=== PATIENT | male | born 1945 | race Caucasian/White ===

== ENCOUNTER 2017-07-02 11:52 | Inpatient (IN) | payer OTHER ==
--- NOTE | 2017-07-02 13:14 | PDOC ---
History of Present Illness - General Chief Complaint: Lightheaded Stated Complaint: EAR PAIN Time Seen by Provider: 07/02/17 12:24 - History of Present Illness Initial Comments: 07/02/17 13:03 Pt is a 71 y/o [place] M w/ extensive PMH significant for COPD, DM, HTN, R renal CA s/p nephrectomy w/out mets (see below) who presented to ED with dizziness and right ear bleeding. Pt states his dizziness started yesterday and feels like the world is spinning and occurs only when he stands up abruptly. Denies dizziness when walking or with head movement. He has been feeling generally unwell for the last week or two and went to see a pulmonolgist (Dr. Josue) at [facility] who gave him steroids. Pt states he blew his nose this morning and subsequently had blood trickling from his right ear. At some point today, he put tweezers in his right ear and states it sounded like they were hitting something metal, and he feels like there may be a piece of metal in his ear. Pt is [place] and travels to [place] every year. Pt is currently afebrile, hemodynamically stable, and in NAD. 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 He is s/p R nephrectomy for CA. 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 Past History - Past Medical History Allergies/Adverse Reactions: Allergies Allergy/AdvReac Type Severity Reaction Status Date / Time hydrochlorothiazide Allergy Swelling Verified 07/02/17 12:12 [From Hyzaar] ibuprofen [From Advil] Allergy Swelling Verified 07/02/17 12:12 losartan [From Hyzaar] Allergy Swelling Verified 07/02/17 12:12 Home Medications: Ambulatory Orders Atorvastatin Calcium [Lipitor] 10 mg PO DAILY 07/02/17 Budesonide/Formeterol Fumarate [SYMBICORT 160/4.5mcg -] 1 inh PO BID 07/02/17 Clonidine HCl 0.1 mg PO BID 07/02/17 Folic Acid 1 mg PO DAILY 07/02/17 Furosemide [Lasix] 40 mg PO DAILY 07/02/17 Metoprolol Succinate [Toprol Xl] 50 mg PO DAILY 07/02/17 Metoprolol Succinate [Toprol Xl] 100 mg PO DAILY 07/02/17 Montelukast Sodium [Singulair] 10 mg PO DAILY 07/02/17 Potassium Chloride [K-Dur -] 10 meq PO BID 07/02/17 COPD: Yes Diabetes: Yes HTN: Yes - Suicide/Smoking/Psychosocial Hx Smoking History: Former smoker Have you smoked in the past 12 months: No If you are a former smoker, when did you quit?: 2 yrs Information on smoking cessation initiated: No Hx Alcohol Use: No Drug/Substance Use Hx: No Review of Systems - Review of Systems Able to Perform ROS?: Yes Is the patient limited Prydeinig proficient: Yes Constitutional: Yes: Symptoms Reported, Malaise. No: Chills, Fever, Night Sweats HEENTM: Yes: Symptoms Reported, See HPI, Tinnitus, Hearing Loss, Other (right ear bleeding). No: Eye Pain, Blurred Vision, Tearing, Nose Bleeding, Throat Swelling Respiratory: Yes: Shortness of Breath. No: Cough, Productive cough Cardiac (ROS): Yes: Symptoms Reported, Edema (pedal edema). No: Chest Pain ABD/GI: Yes: Symptoms Reported. No: Abdominal Distended, Constipated, Diarrhea , Poor Appetite, Rectal Bleeding, Vomiting : Yes: Symptoms Reported. No: Burning, Dysuria, Discharge, Frequency Musculoskeletal: Yes: Symptoms Reported. No: Back Pain, Joint Pain *Physical Exam - Vital Signs Last Vital Signs Temp Pulse Resp BP Pulse Ox 97.8 F 76 20 149/100 86 L 07/02/17 12:07 07/02/17 12:07 07/02/17 12:07 07/02/17 12:07 07/02/17 12:07 - Physical Exam General Appearance: Yes: Appropriately Dressed. No: Apparent Distress HEENT: positive: EOMI, GEOVANY, Normal ENT Inspection, Normal Voice, Symmetrical, Hearing Grossly Normal. negative: Hearing Decreased (hearing similar left and right) Neck: positive: Supple. negative: Tender Respiratory/Chest: positive: Lungs Clear, Normal Breath Sounds, Rapid RR. negative: Chest Tender, Respiratory Distress, Rales, Wheezing Cardiovascular: positive: Regular Rhythm, Regular Rate, S1, S2, Edema (2+ edema b/l) Vascular Pulses: Dorsalis-Pedis (R): 2+, Doralis-Pedis (L): 2+ Gastrointestinal/Abdominal: positive: Normal Bowel Sounds, Soft. negative: Tender, Flat (obese) Extremity: positive: Normal Inspection, Other (anomalous L radial art anatomy) Neurologic: positive: progressive care nurse II-XII NML intact, Fully Oriented, Alert, Normal Mood/ Affect ED Treatment Course - LABORATORY CBC & Chemistry Diagram: 07/02/17 14:00 07/02/17 14:00 Medical Decision Making - Medical Decision Making 07/02/17 15:00 Pt is a 71 y/o M with extensive PMH sig for lung nodules (noncancerous as of 3 weeks ago per pt), COPD (on 6L O2 at home), interstitial lung disease, renal CA (s/p nephrectomy) who presented to ED with complaint of right ear bleeding. During interview it was elucidated that pt has recently developed an increased demand for O2 at home. He had been on 6L and was able to move around the house, but in the last few days, he states that he is de-satting to mid 80s on 8L O2. 07/02/17 15:30 Labs significant for ABG showing metabolic alk + resp acidosis, alk phos 207, BNP 251. Head CT significant for sinusitis CXR significant for elevated R hemidiaphragm, and central congestion (worse since previous) 07/02/17 16:16 Spoke to hospitalist. Pt is accepted for inpatient admission. 07/02/17 18:52 Spoke with pt and family again. Addressed questions and concerns. Pt stable in NAD. *DC/Admit/Observation/Transfer Diagnosis at time of Disposition: Hypoxia - Discharge Dispostion Admit: Yes - Referrals - Patient Instructions - Post Discharge Activity
[2017-07-02] MEDS ORDERED: MECLIZINE HCL 25 MG TABLET (FP) PO ONE (13:26)
[2017-07-02] MEDS ORDERED: MECLIZINE HCL 25 MG TABLET (FP) ONE (13:38)
[2017-07-02 13:47] LABS: ARTERIAL BLD GAS O2 SATURATION 94.8 % (90-98.9); ARTERIAL BLOOD GAS PCO2 50.2 mmHg (35-45); ARTERIAL BLOOD GAS PO2 73.3 mmHg (70-100); ARTERIAL BLOOD GAS pH 7.43 (7.35-7.45)
[2017-07-02 13:49] LABS: ALLENS TEST POSITIVE
[2017-07-02 13:53] LABS: CARBOXYHEMOGLOBIN 1.3 gm% (0.5-2.0)
--- NOTE | 2017-07-02 14:11 | PDOC ---
Attending Attestation - Resident Resident Name: Santi Almanzar - ED Attending Attestation I have performed the following: I have examined & evaluated the patient, The case was reviewed & discussed with the resident, I agree w/resident's findings & plan, Exceptions are as noted - HPI HPI: 07/02/17 14:05 71-year-old male with history of COPD, and suture shoulder lung disease, on home oxygen 6 L at baseline, diabetes, hypertension, right renal cancer status post nephrectomy presents to emergency Department with 2 complaints. The patient reports with 2 weeks of increasing dyspnea and dyspnea on exertion. The patient had seen his reporting developer at [facility] would prescribe him twice a day dosing of steroids, which the patient does not remember the exact dosing. Stated that he's been having a dry cough but the symptoms have been worsening despite the steroids. His O2 saturation is typically in the 90s but when he exerts himself several steps, he has noted that his oxygen saturations would dip down low 80s. Denies fevers or chills or chest pain. Denies sick contacts. Yesterday, the patient did develop worsening vertiginous-like symptoms partly with sitting up. Never had a syncopal episode. Stated today that he blew his nose, felt a popping noise in his right ear and some blood. Patient is still endorsing dizziness when standing up but improved with laying or ambulating. - Physicial Exam PE: 07/02/17 14:06 GENERAL: Awake, alert, and fully oriented, in no acute distress. HEAD: No signs of trauma EYES: PERRLA, EOMI, sclera anicteric, conjunctiva clear ENT: Auricles normal inspection, hearing grossly normal, nares patent. R TM with ?cholesteatoma, blood in the canal, ?unable to visualize source of rupture , small amounts of blood behind the R TM. NECK: Normal ROM, supple LUNGS: Occasional ronchi on expiration bilaterally. HEART: Regular rate and rhythm, normal S1 and S2, no murmurs, rubs or gallops ABDOMEN: Soft, nontender, normoactive bowel sounds. No guarding, no rebound. No masses EXTREMITIES: Normal range of motion. 2+ pitting edema lower extremities NEUROLOGICAL: Cranial nerves II through XII intact. Normal speech. No dysmetria. 5/5 strength upper and lower extremities. No pronator drift. Equivocal positive Lisman [place] bilaterally. SKIN: Warm, Dry, normal turgor, no rashes or lesions noted. - Medical Decision Making 07/02/17 14:09 Vital Signs Temp Pulse Resp BP Pulse Ox 97.8 F 76 20 149/100 86 L 07/02/17 12:07 07/02/17 12:07 07/02/17 12:07 07/02/17 12:07 07/02/17 12:07 Regarding the patient's respiratory status, given the history of lung nodules, which the family reports is noncancerous, interstitial lung disease and COPD and baseline 6 L nasal cannula, we'll need to investigate whether this is COPD exacerbation, exacerbation of interstitial lung disease, pneumonia or other pulmonary disease. Chest x-ray, labs including BMP given increased lower extremity edema. Patient is currently on steroids but symptoms are worsening. Though the history is not totally consistent with ACS, we'll send a troponin. We 'll place patient on nasal cannula and admit the patient for further management. The right tympanic membranes does have small amount of blood. This may potentially be causing vertiginous-like symptoms but the patient reports that this occurred before the bleeding. There is some blood in the ear canal. It is unclear at this time with the etiology of this bleeding is from. We'll however obtain a CAT scan the head. Trial meclizine. Ultimate, the patient will be admitted for further management. 07/02/17 15:26 Chest x-ray demonstrates inspiratory effort with elevated right hemidiaphragm, large heart and some central congestive changes. CAT scan head demonstrates no evidence of acute intracranial pathology. CBC, BMP 07/02/17 14:00 07/02/17 14:00 CMP Sodium 139 mmol/L (136-145) 07/02/17 14:00 Potassium 4.3 mmol/L (3.5-5.1) 07/02/17 14:00 Chloride 99 mmol/L (98-107) 07/02/17 14:00 Carbon Dioxide 31 mmol/L (21-32) 07/02/17 14:00 Anion Gap 9 (8-16) 07/02/17 14:00 BUN 28 mg/dL (7-18) H 07/02/17 14:00 Creatinine 1.1 mg/dL (0.7-1.3) 07/02/17 14:00 Creat Clearance w eGFR > 60 (>60) 07/02/17 14:00 Random Glucose 161 mg/dL (74-106) H 07/02/17 14:00 Lactic Acid 1.7 mmol/L (0.4-2.0) 07/02/17 14:00 Calcium 8.9 mg/dL (8.5-10.1) 07/02/17 14:00 Total Bilirubin 0.5 mg/dL (0.2-1.0) 07/02/17 14:00 AST 32 U/L (15-37) 07/02/17 14:00 ALT 46 U/L (12-78) 07/02/17 14:00 Alkaline Phosphatase 207 U/L (45-117) H 07/02/17 14:00 Creatine Kinase 128 IU/L (39-308) 07/02/17 13:36 Troponin I < 0.02 ng/ml (0.00-0.05) 07/02/17 13:36 B-Natriuretic Peptide Cancelled 07/02/17 14:00 Total Protein 6.7 g/dl (6.4-8.2) 07/02/17 14:00 Albumin 3.3 g/dl (3.4-5.0) L 07/02/17 14:00 Urine Test Results Urine Color Ltyellow 07/02/17 13:36 Urine Appearance Clear 07/02/17 13:36 Urine pH 7.0 (5.0-8.0) 07/02/17 13:36 Ur Specific [place] 1.016 (1.001-1.035) 07/02/17 13:36 Urine Protein Negative (NEGATIVE) 07/02/17 13:36 Urine Glucose (UA) Negative (NEGATIVE) 07/02/17 13:36 Urine Ketones Negative (NEGATIVE) 07/02/17 13:36 Urine Blood Negative (NEGATIVE) 07/02/17 13:36 Urine Nitrite Negative (NEGATIVE) 07/02/17 13:36 Urine Bilirubin Negative (NEGATIVE) 07/02/17 13:36 07/02/17 15:29 CT shows likely sinusitis. Given coughing and dizziness, will treat with azithromycin Admit Heart Score/ECG Review #1 ECG reviewed & interpreted by me at: 12:25 07/02/17 14:08 NSR 68, no std/barbie, normal axis, normal intervals, QTC 429 msec: normal ECG
[2017-07-02 14:14] LABS: BASO % 0.3 % (0-2.0); HEMATOCRIT 43.1 % (35.4-49); HEMOGLOBIN 13.9 GM/dL (11.7-16.9); LYMPH % 9.1 % (8-40); MCH 30.3 pg (25.7-33.7); MCHC 32.2 g/dl (32.0-35.9); MEAN CELL VOLUME 94.1 fl (80-96); MEAN PLT VOLUME 7.7 fl (7.5-11.1); MONO % 7.9 % (3.8-10.2); NEUT % 81.7 % (42.8-82.8); PLATELET COUNT 173 K/MM3 (134-434); RBC 4.57 M/mm3 (4.00-5.60); RDW 15.2 % (11.9-15.9); WHITE BLOOD COUNT 9.6 K/mm3 (4.0-10.0)
[2017-07-02 14:18] LABS: URINE APPEARANCE CLEAR; URINE BILIRUBIN NEGATIVE (NEGATIVE); URINE BLOOD NEGATIVE (NEGATIVE); URINE COLOR LTYELLOW; URINE GLUCOSE (UA) NEGATIVE (NEGATIVE); URINE KETONE NEGATIVE (NEGATIVE); URINE LEUK ESTERASE NEGATIVE (NEGATIVE); URINE NITRITE NEGATIVE (NEGATIVE); URINE PROTEIN NEGATIVE (NEGATIVE); URINE UROBILINOGEN NEGATIVE mg/dL (0.2-1.0)
[2017-07-02 14:34] LABS: INR 0.91 (0.82-1.09); PROTHROMBIN TIME (PATIENT) 10.3 SEC (9.98-11.88)
[2017-07-02 14:46] LABS: ALBUMIN 3.3 g/dl (3.4-5.0); ANION GAP 9 (8-16); BLOOD UREA NITROGEN 28 mg/dL (7-18); CALCIUM 8.9 mg/dL (8.5-10.1); CHLORIDE 99 mmol/L (98-107); CO2 31 mmol/L (21-32); CREATININE 1.1 mg/dL (0.7-1.3); GLUCOSE,RANDOM 161 mg/dL (74-106); POTASSIUM 4.3 mmol/L (3.5-5.1); SGOT/AST 32 U/L (15-37); SGPT/ALT 46 U/L (12-78); SODIUM 139 mmol/L (136-145); TOT PROT 6.7 g/dl (6.4-8.2)
[2017-07-02 14:48] LABS: N-TERMINAL BNP 251.26 pg/ml (5-125)
[2017-07-02 14:51] LABS: ALK PHOS 207 U/L (45-117); BILIRUBIN,TOTAL 0.5 mg/dL (0.2-1.0)
--- NOTE | 2017-07-02 17:03 | HP ---
CHIEF COMPLAINT: feeling lightheaded and dizzy with right ear bleeding. PCP: HISTORY OF PRESENT ILLNESS: Patient is a 71 year old israeli male with a significant past medical history of COPD (home oxygen dependent), pulmonary fibrosis, diabetes, hypertension, R renal CA s/p nephrectomy without metastatic disease. He presents to the ED today with c/o of feeling lightheaded and dizzy with right ear bleeding. Patient reported that his ear was bothering him earlier so he attempted to place a tweezer inside. A small amount of blood was seen behind the right tympanic membrane by the ED physician. Antivert was given in the ED and pt reported that his dizziness has since subsided. A CT scan of the head show no evidence of ICH but extensive sinusitis. Patient is home oxygen dependent and has a history of lung nodules which patient states it was non cancerous. interstitial lung disease and COPD. He reports using home oxygen between 4-6 liters at home but has been using 8 liters as patient developed increased demand for home oxygen and his oxygen sats at home have been in the mid to low 80s on 6-8 liters. His last travel to [place] was in April of 2017 and he usually travels once per year. He denies chest pain or back pain. In the ED, ABG for metabolic alk + resp acidosis, alk phos 207, BNP 251. Head CT significant for sinusitis ER course was notable for: (1) head CT 07/02: no evidence of ICH, extensive sinusitis (2) Chest xray - weak inspiration effort w/elevated right hemodiagram-large heart and some central congestive changes (3) ALK phos 205 (4) Trop negative x 1 (5) BGM 161 (6) ABG 4 liters: PH 7.43, CO2 50.2, P02 73.3, ABG CO2 94.8 Recent Travel: PAST MEDICAL HISTORY: COPD (home oxygen dependent), diabetes, hypertension, R renal CA s/p nephrectomy w/out metastatic disease. PAST SURGICAL HISTORY: R renal CA s/p nephrectomy Social History: Smoking: former smoker Alcohol: none Drugs: none Family History: Allergies hydrochlorothiazide [From Hyzaar] Allergy (Verified 07/02/17 12:12) Swelling ibuprofen [From Advil] Allergy (Verified 07/02/17 12:12) Swelling losartan [From Hyzaar] Allergy (Verified 07/02/17 12:12) Swelling HOME MEDICATIONS: Home Medications Medication Instructions Recorded Atorvastatin Calcium [Lipitor] 10 mg PO DAILY 07/02/17 Budesonide/Formeterol Fumarate 1 inh PO BID 07/02/17 [SYMBICORT 160/4.5mcg -] Clonidine HCl 0.1 mg PO BID 07/02/17 Folic Acid 1 mg PO DAILY 07/02/17 Furosemide [Lasix] 40 mg PO DAILY 07/02/17 Metoprolol Succinate [Toprol Xl] 50 mg PO DAILY 07/02/17 Metoprolol Succinate [Toprol Xl] 100 mg PO DAILY 07/02/17 Montelukast Sodium [Singulair] 10 mg PO DAILY 07/02/17 Potassium Chloride [K-Dur -] 10 meq PO BID 07/02/17 REVIEW OF SYSTEMS CONSTITUTIONAL: Absent: fever, chills, diaphoresis, generalized weakness, malaise, loss of appetite, weight change HEENT: Absent: rhinorrhea, nasal congestion, throat pain, throat swelling, difficulty swallowing, mouth swelling, ear pain, eye pain, visual changes CARDIOVASCULAR: Absent: chest pain, syncope, palpitations, irregular heart rate, lightheadedness , peripheral edema GASTROINTESTINAL: Absent: abdominal pain, abdominal distension, nausea, vomiting, diarrhea, constipation, melena, hematochezia GENITOURINARY: Absent: dysuria, frequency, urgency, hesitancy, hematuria, flank pain, genital pain MUSCULOSKELETAL: Absent: myalgia, arthralgia, joint swelling, back pain, neck pain SKIN: Absent: rash, itching, pallor HEMATOLOGIC/IMMUNOLOGIC: Absent: easy bleeding, easy bruising, lymphadenopathy, frequent infections ENDOCRINE: Absent: unexplained weight gain, unexplained weight loss, heat intolerance, cold intolerance NEUROLOGIC: Absent: headache, focal weakness or paresthesias, dizziness, unsteady gait, seizure, mental status changes, bladder or bowel incontinence PSYCHIATRIC: Absent: anxiety, depression, suicidal or homicidal ideation, hallucinations. PHYSICAL EXAMINATION Vital Signs - 24 hr 07/02/17 07/02/17 12:07 15:52 Temperature 97.8 F 98.2 F Pulse Rate 76 Pulse Rate [ 66 Left Apical] Respiratory 20 18 Rate Blood Pressure 149/100 Blood Pressure 132/79 [Left Arm] O2 Sat by Pulse 86 L 95 Oximetry (%) GENERAL: Awake, alert, and fully oriented, in no acute distress. HEAD: Normal with no signs of trauma. EYES: Pupils equal, round and reactive to light, extraocular movements intact, sclera anicteric, conjunctiva clear. No lid lag. EARS, NOSE, THROAT: Right ear tympanic bleeding behind tympanic membrane, sinusitis seen on head CT NECK: Normal range of motion, supple without lymphadenopathy, JVD, or masses. LUNGS:No wheezing, + right crackles on RLL, Left lung clear/diminshed at base HEART: Regular rate and rhythm ABDOMEN: obese abd., soft, non tender UPPER EXTREMITIES: 2+ pulses, warm, well-perfused. No cyanosis. No clubbing. No peripheral edema. LOWER EXTREMITIES: +1-+2 lower ext edema NEUROLOGICAL: Normal speech, some conversational dyspnea PSYCHIATRIC: Cooperative. Good eye contact. Appropriate mood and affect. SKIN: Warm, dry, normal turgor, no rashes or lesions noted, normal capillary refill. Laboratory Results - last 24 hr 07/02/17 07/02/17 07/02/17 13:36 13:36 13:40 WBC RBC Hgb Hct MCV MCH MCHC RDW Plt Count MPV Neutrophils % Lymphocytes % Monocytes % Eosinophils % Basophils % PT with INR INR PTT (Actin FS) Puncture Site Right radial ABG pH 7.43 ABG pCO2 at Pt Temp 50.2 H ABG pO2 at Pt Temp 73.3 ABG HCO3 32.4 H ABG O2 Sat (Measured) 94.8 ABG O2 Content 18.4 ABG Base Excess 7.0 H Richard Test Positive Carboxyhemoglobin Methemoglobin O2 Delivery Device Nasal Oxygen Flow Rate 4 lpm PEEP 0.0 Sodium Potassium Chloride Carbon Dioxide Anion Gap BUN Creatinine Creat Clearance w eGFR Random Glucose Lactic Acid Calcium Total Bilirubin AST ALT Alkaline Phosphatase Creatine Kinase 128 Troponin I < 0.02 B-Natriuretic Peptide 251.26 H Total Protein Albumin Urine Color Ltyellow Urine Appearance Clear Urine pH 7.0 Ur Specific [place] 1.016 Urine Protein Negative Urine Glucose (UA) Negative Urine Ketones Negative Urine Blood Negative Urine Nitrite Negative Urine Bilirubin Negative Urine Urobilinogen Negative 07/02/17 07/02/17 07/02/17 13:40 14:00 14:00 WBC 9.6 RBC 4.57 Hgb 13.9 Hct 43.1 MCV 94.1 MCH 30.3 MCHC 32.2 RDW 15.2 Plt Count 173 MPV 7.7 Neutrophils % 81.7 Lymphocytes % 9.1 Monocytes % 7.9 Eosinophils % 1.0 Basophils % 0.3 PT with INR INR PTT (Actin FS) Puncture Site ABG pH ABG pCO2 at Pt Temp ABG pO2 at Pt Temp ABG HCO3 ABG O2 Sat (Measured) ABG O2 Content ABG Base Excess Richard Test Carboxyhemoglobin 1.3 Methemoglobin 1.0 O2 Delivery Device Oxygen Flow Rate PEEP Sodium Potassium Chloride Carbon Dioxide Anion Gap BUN Creatinine Creat Clearance w eGFR Random Glucose Lactic Acid Calcium Total Bilirubin AST ALT Alkaline Phosphatase Creatine Kinase Troponin I B-Natriuretic Peptide Cancelled Total Protein Albumin Urine Color Urine Appearance Urine pH Ur Specific [place] Urine Protein Urine Glucose (UA) Urine Ketones Urine Blood Urine Nitrite Urine Bilirubin Urine Urobilinogen 07/02/17 07/02/17 07/02/17 14:00 14:00 14:00 WBC RBC Hgb Hct MCV MCH MCHC RDW Plt Count MPV Neutrophils % Lymphocytes % Monocytes % Eosinophils % Basophils % PT with INR 10.30 INR 0.91 PTT (Actin FS) 27.0 Puncture Site ABG pH ABG pCO2 at Pt Temp ABG pO2 at Pt Temp ABG HCO3 ABG O2 Sat (Measured) ABG O2 Content ABG Base Excess Richard Test Carboxyhemoglobin Methemoglobin O2 Delivery Device Oxygen Flow Rate PEEP Sodium 139 Potassium 4.3 Chloride 99 Carbon Dioxide 31 Anion Gap 9 BUN 28 H Creatinine 1.1 Creat Clearance w eGFR > 60 Random Glucose 161 H Lactic Acid 1.7 Calcium 8.9 Total Bilirubin 0.5 AST 32 ALT 46 Alkaline Phosphatase 207 H Creatine Kinase Troponin I B-Natriuretic Peptide Total Protein 6.7 Albumin 3.3 L Urine Color Urine Appearance Urine pH Ur Specific [place] Urine Protein Urine Glucose (UA) Urine Ketones Urine Blood Urine Nitrite Urine Bilirubin Urine Urobilinogen ASSESSMENT/PLAN: Patient is a 71 year old male with a significant past medical history of COPD ( home oxygen dependent), pulmonary fibrosis, diabetes, hypertension, CHF, R renal CA s/p nephrectomy without metastatic disease. He presents to the ED today with c/o of feeling lightheaded and dizzy with right ear bleeding. Patient reported that his ear was bothering him earlier so he attempted to place a tweezer inside because he felt that he had an object inside his ear. A small amount of blood was seen behind the right tympanic membrane by the ED physician. Antivert was given in the ED and pt reported that his dizziness has since subsided. A CT scan of the head show no evidence of ICH but extensive sinusitis. Patient is home oxygen dependent and has a history of lung nodules (which patient states it was non cancerous ), interstitial lung disease and COPD. He reports using home oxygen between 4-6 liters at home but has been using 8 liters as patient developed increased demand for home oxygen. He reports that his oxygen sats at home have been in the mid to low 80s on 6-8 liters. His last travel to [place] was in April of 2017 and he usually travels once per year. He denies chest pain or back pain. No tachycardia on exam. In the ED, ABG for metabolic alk + resp acidosis, alk phos 207, BNP 251. Head CT significant for sinusitis Pulmonary Hypoxia, acute on chronic Acute COPD exacerbation vs. interstitial lung disease flare vs. PE Home oxygen dependent on 6 liters but requiring 8 liters for increased dyspnea ABG shows respiratory acidosis No wheezing on exam, + crackles on RLL Duonebs scheduled No chest pain, no tachycardia on exam Echo ordered CTA or VQ scan as per pulmonary, pt has right nephrectomy and CTA likely contraindicated Cardiology Hypertension On metoprolol 150mg daily On Clonidine hcl 0.1mg bid Lipid panel in a.m Orthostatics q8 Shortness of breath Trop negative x 1, trend Cardiology consult for shortness of breath Echo ordered Endocrine: Monitor BGMs, Novolog sliding scale CHF On Lasix 40mg daily ENT: Ear/Nose/Throat Right ear bleeding on presentation Possible right tympanic trauma ENT consult Sinusitits Started on Azithromycin 500mg now Nasal spray Renal R renal CA s/p nephrectomy Monitor renal function closely Avoid nephrotoxic medications F.E.N. Fluids: none, PO adequate Electrolytes: monitor Nutrition: renal diet Prophylaxis: DVT: ambuation, SCDs GI: deferred disposition: full code
[2017-07-02] MEDS: ALBUTEROL SO4 2.5/IPRATROPIUM 0.5 INH SOL 3 ML VIAL.NEB. NEB PRN (17:55)
[2017-07-02] MEDS ORDERED: AZITHROMYCIN IVPB 250 ML IVPB ONE (18:37)
[2017-07-02] MEDS: AZITHROMYCIN IVPB 500 MG in DEXTROSE 5%-WATER - 250 ML IVPB SCH (18:46)
[2017-07-02] MEDS ORDERED: SODIUM CHLORIDE NASAL SPRAY 44 ML BOTTLE NS PRN (18:54)
[2017-07-02 20:51] VITALS: BMI 43.7
[2017-07-02] MEDS ORDERED: INSULIN (NOVOLOG) ASPART 100 UNITS/ML 10ML VIAL ONE (21:25)
[2017-07-02] MEDS: cloNIDine HCL 0.1 MG TABLET PO SCH (22:07)
[2017-07-02] MEDS: POTASSIUM CHLORIDE TABS 10 MEQ TABLET.ER (FP) PO SCH (22:07)
[2017-07-02] MEDS: INSULIN SLIDING SCALE (NOVOLOG) 1 VIAL SQ SCH (22:11)
[2017-07-02] MEDS: BUDESONIDE/FORMETEROL FUMARATE 160/4.5 mcg INHALER IH SCH (23:02)
[2017-07-03] MEDS: MECLIZINE HCL 12.5 MG TABLET PO SCH ×4 (00:07→18:11)
[2017-07-03] MEDS: INSULIN SLIDING SCALE (NOVOLOG) 1 VIAL SQ SCH ×4 (06:14→22:23)
[2017-07-03] MEDS: ALBUTEROL SO4 2.5/IPRATROPIUM 0.5 INH SOL 3 ML VIAL.NEB. NEB PRN ×3 (06:24→21:50)
--- NOTE | 2017-07-03 07:17 | EKG ---
Test Reason : Blood Pressure : / mmHG Vent. Rate : 068 BPM Atrial Rate : 068 BPM P-R Int : 148 ms QRS Dur : 094 ms QT Int : 404 ms P-R-T Axes : 023 046 064 degrees QTc Int : 429 ms NORMAL SINUS RHYTHM NORMAL ECG NO PREVIOUS ECGS AVAILABLE BASELINE ARTIFACT Confirmed by ARUN ARANA, SHER ([id number]) on 07/03/2017 7:17:10 AM Referred By: Confirmed By:SHER DIAS MD
[2017-07-03 07:40] LABS: HEMATOCRIT 40.9 % (35.4-49); HEMOGLOBIN 13.3 GM/dL (11.7-16.9); MCH 30.7 pg (25.7-33.7); MCHC 32.4 g/dl (32.0-35.9); MEAN CELL VOLUME 94.8 fl (80-96); MEAN PLT VOLUME 7.7 fl (7.5-11.1); PLATELET COUNT 145 K/MM3 (134-434); RBC 4.31 M/mm3 (4.00-5.60); RDW 15.6 % (11.9-15.9); WHITE BLOOD COUNT 8.1 K/mm3 (4.0-10.0)
[2017-07-03 07:49] LABS: ANION GAP 5 (8-16); BLOOD UREA NITROGEN 24 mg/dL (7-18); CALCIUM 8.3 mg/dL (8.5-10.1); CHLORIDE 102 mmol/L (98-107); CHOLESTEROL 160 mg/dL (50-200); CO2 33 mmol/L (21-32); GLUCOSE,RANDOM 88 mg/dL (74-106); MAGNESIUM 2.6 mg/dL (1.8-2.4); POTASSIUM 4.2 mmol/L (3.5-5.1); SGOT/AST 23 U/L (15-37); SGPT/ALT 42 U/L (12-78); SODIUM 140 mmol/L (136-145); TOT PROT 5.9 g/dl (6.4-8.2); TRIGLYCERIDES 96 mg/dL (35-160)
[2017-07-03 07:50] LABS: HDL CHOLESTEROL 95 mg/dL (40-60); LDL CHOLESTEROL (ONLY SJRH) 61 mg/dL (5-100)
[2017-07-03 07:52] LABS: ALK PHOS 159 U/L (45-117); BILIRUBIN,TOTAL 0.7 mg/dL (0.2-1.0)
[2017-07-03] MEDS ORDERED: PT OWN MED DRAWER 7, Y5N ONE ×2 (09:03→12:27)
[2017-07-03] MEDS: POTASSIUM CHLORIDE TABS 10 MEQ TABLET.ER (FP) PO SCH ×2 (09:14→22:28)
[2017-07-03] MEDS: cloNIDine HCL 0.1 MG TABLET PO SCH ×2 (09:14→22:23)
[2017-07-03] MEDS: BUDESONIDE/FORMETEROL FUMARATE 160/4.5 mcg INHALER IH SCH (09:17)
--- NOTE | 2017-07-03 09:32 | CON.CARD ---
Consult - Alcohol/Substance Use Hx Alcohol Use: No - Smoking History Smoking history: Former smoker Have you smoked in the past 12 months: No If you are a former smoker, when did you quit?: 2000 Home Medications - Allergies Allergies/Adverse Reactions: Allergies Allergy/AdvReac Type Severity Reaction Status Date / Time hydrochlorothiazide Allergy Swelling Verified 07/02/17 12:12 [From Hyzaar] ibuprofen [From Advil] Allergy Swelling Verified 07/02/17 12:12 losartan [From Hyzaar] Allergy Swelling Verified 07/02/17 12:12 - Home Medications Home Medications: Ambulatory Orders Atorvastatin Calcium [Lipitor] 10 mg PO DAILY 07/02/17 Budesonide/Formeterol Fumarate [SYMBICORT 160/4.5mcg -] 1 inh PO BID 07/02/17 Clonidine HCl 0.1 mg PO BID 07/02/17 Folic Acid 1 mg PO DAILY 07/02/17 Furosemide [Lasix] 40 mg PO DAILY 07/02/17 Metoprolol Succinate [Toprol Xl] 50 mg PO DAILY 07/02/17 Metoprolol Succinate [Toprol Xl] 100 mg PO DAILY 07/02/17 Montelukast Sodium [Singulair] 10 mg PO DAILY 07/02/17 Potassium Chloride [K-Dur -] 10 meq PO BID 07/02/17 Vital Signs: Vital Signs Temperature 97.5 F L 07/03/17 04:55 Pulse Rate 57 L 07/03/17 04:55 Respiratory Rate 20 07/03/17 04:55 Blood Pressure 125/79 07/03/17 04:55 O2 Sat by Pulse Oximetry (%) 95 07/02/17 21:00 - Other Data Labs, Other Data: CBC, BMP 07/03/17 06:00 07/03/17 06:00 INR, PTT INR 0.91 (0.82-1.09) 07/02/17 14:00 Troponin, BNP 07/02/17 07/02/17 07/02/17 13:36 14:00 17:50 Troponin I < 0.02 < 0.02 B-Natriuretic Peptide 251.26 H Cancelled Troponin, BNP 07/02/17 07/02/17 07/02/17 13:36 14:00 17:50 Troponin I < 0.02 < 0.02 B-Natriuretic Peptide 251.26 H Cancelled
[2017-07-03] MEDS ORDERED: FUROSEMIDE 40 MG TABLET (FP) PO SCH (10:00)
[2017-07-03] MEDS ORDERED: METOPROLOL SUCCINATE 100 MG TAB.SR.24H (FP) PO SCH (10:00)
[2017-07-03] MEDS ORDERED: METOPROLOL SUCCINATE 50 MG TAB.SR.24H (FP) PO SCH (10:00)
[2017-07-03] MEDS ORDERED: FOLIC ACID 1 MG TABLET (FP) PO SCH (10:00)
[2017-07-03] MEDS: AZITHROMYCIN IVPB 500 MG in DEXTROSE 5%-WATER - 250 ML IVPB SCH (10:47)
--- NOTE | 2017-07-03 11:34 | CON.PULM ---
Consult Consult Specialty:: PULMONARY Referred by:: ROMAINE Reason for Consultation:: COPD/HOME O2 - History of Present Illness Chief Complaint: RIGHT EAR DISCHARGE/SINUSITIS/DIZZINESS History of Present Illness: 71-year-old male with history of COPD, on home oxygen 6 L at baseline, diabetes , hypertension, right renal cancer status post nephrectomy. The patient reports with 2 weeks of increasing dyspnea on exertion. The patient had seen his auto accessories installer at [facility] would prescribe him twice a day dosing of steroids, which the patient does not remember the exact dosing. Stated that he' s been having a dry cough but the symptoms have been worsening despite the steroids. His O2 saturation is typically in the 90s but when he exerts himself several steps, he has noted that his oxygen saturations would dip down low 80s. Denies fevers or chills or chest pain. Denies sick contacts. Yesterday, the patient did develop worsening vertiginous-like symptoms partly with sitting up. Never had a syncopal episode. Stated today that he blew his nose, felt a popping noise in his right ear and some blood. Patient is still endorsing dizziness when standing up but improved with laying or ambulating. Patient had a sleep study and was diagnosed with OSAS, he was prescribed NIPPV but has since stopped using it. - History Source History Provided By: Patient, Medical Record Limitations to Obtaining History: Language Barrier - Past Medical History CALKER: No: Alzheimer's Cardio/Vascular: No: AFIB Pulmonary: Yes: COPD, O2 Dependent, Pulmonary Fibrosis, Sleep Apnea. No: Previously Intubated, Pulmonary Embolus Gastrointestinal: No: Ascites Hepatobiliary: No: Cirrhosis Renal/: Yes: Cancer, Other (s/p nephrectomy) Heme/Onc: No: Anemia Psych: No: Addictions Rheumatology: No: Fibromyalgia - Past Surgical History Additional Surgical History: nephrectomy - Alcohol/Substance Use Hx Alcohol Use: No - Smoking History Smoking history: Former smoker Have you smoked in the past 12 months: No If you are a former smoker, when did you quit?: 2000 - Social History Usual Living Arrangement: With Spouse ADL: Independent Place of : Other History of Recent Travel: No Home Medications - Allergies Allergies/Adverse Reactions: Allergies Allergy/AdvReac Type Severity Reaction Status Date / Time hydrochlorothiazide Allergy Swelling Verified 07/02/17 12:12 [From Hyzaar] ibuprofen [From Advil] Allergy Swelling Verified 07/02/17 12:12 losartan [From Hyzaar] Allergy Swelling Verified 07/02/17 12:12 - Home Medications Home Medications: Ambulatory Orders Atorvastatin Calcium [Lipitor] 10 mg PO DAILY 07/02/17 Budesonide/Formeterol Fumarate [SYMBICORT 160/4.5mcg -] 1 inh PO BID 07/02/17 Clonidine HCl 0.1 mg PO BID 07/02/17 Folic Acid 1 mg PO DAILY 07/02/17 Furosemide [Lasix] 40 mg PO DAILY 07/02/17 Metoprolol Succinate [Toprol Xl] 50 mg PO DAILY 07/02/17 Metoprolol Succinate [Toprol Xl] 100 mg PO DAILY 07/02/17 Montelukast Sodium [Singulair] 10 mg PO DAILY 07/02/17 Potassium Chloride [K-Dur -] 10 meq PO BID 07/02/17 Family Disease History - Family Disease History Family History: Unremarkable Review of Systems - Review of Systems Constitutional: denies: Fever Eyes: denies: Blurred Vision HENT: reports: Ear Discharge, Ear Pain, Nasal Congestion, Other (bloody right eaar discharge). denies: Difficult Swallowing Neck: denies: Decreased ROM Cardiovascular: reports: Shortness of Breath Respiratory: reports: Cough, Exercise Intolerance, SOB on Exertion. denies: Hemoptysis Gastrointestinal: reports: No Symptoms Hematology/Lymphatic: reports: No Symptoms Psychiatric: reports: No Symptoms Physical Exam Vital Sings: Vital Signs Temperature 97.5 F L 07/03/17 09:00 Pulse Rate 69 07/03/17 09:00 Respiratory Rate 22 07/03/17 09:00 Blood Pressure 152/82 07/03/17 09:00 O2 Sat by Pulse Oximetry (%) 92 L 07/03/17 09:00 Constitutional: Yes: Calm Eyes: Yes: EOM Intact HENT: Yes: Normocephalic Neck: Yes: Trachea Midline Cardiovascular: Yes: Regular Rate and Rhythm Respiratory: Yes: Diminished (bilateral) Gastrointestinal: Yes: Soft Renal/: Yes: WNL Breast(s): Yes: WNL Musculoskeletal: Yes: WNL Edema: LLE: 1+, RLE: 1+ ...Motor Strength: WNL Psychiatric: Yes: Alert Labs: CBC, BMP 07/03/17 06:00 07/03/17 06:00 ABG Results ABG pH 7.43 (7.35-7.45) 07/02/17 13:40 ABG pCO2 at Pt Temp 50.2 mmHg (35-45) H 07/02/17 13:40 ABG pO2 at Pt Temp 73.3 mmHg (70-100) 07/02/17 13:40 ABG HCO3 32.4 meq/L (22-26) H 07/02/17 13:40 ABG O2 Sat (Measured) 94.8 % (90-98.9) 07/02/17 13:40 ABG O2 Content 18.4 % vol (15-22) 07/02/17 13:40 ABG Base Excess 7.0 meq/l (-2-2) H 07/02/17 13:40 rest reviewed Imaging - Results Chest X-ray: Report Reviewed, Image Reviewed Cat Scan: Report Reviewed, Image Reviewed EKG: Report Reviewed, Image Reviewed Problem List - Problems (1) COPD (chronic obstructive pulmonary disease) Code(s): J44.9 - CHRONIC OBSTRUCTIVE PULMONARY DISEASE, UNSPECIFIED (2) Sleep apnea in adult Code(s): G47.30 - SLEEP APNEA, UNSPECIFIED (3) Otitis externa hemorrhagica Code(s): H60.329 - HEMORRHAGIC OTITIS EXTERNA, UNSPECIFIED EAR (4) Diabetes Code(s): E11.9 - TYPE 2 DIABETES MELLITUS WITHOUT COMPLICATIONS (5) HTN (hypertension) Code(s): I10 - ESSENTIAL (PRIMARY) HYPERTENSION (6) Renal malignant neoplasm Code(s): C64.9 - MALIGNANT NEOPLASM OF UNSP KIDNEY, EXCEPT RENAL PELVIS Assessment/Plan O2 DEPENDANT COPD/(HAS CHEMICAL PROCESS OPERATOR FROM [facility]) MAINTAINED ON SYMBICORT BID/HIGH CONCENTRATIONS O2 UNTREATED OSAS HTN/DM ACUTE SINUSITIS BLOODY RIGHT EAR DISCHARGE WILL ORDER SYMBICORT 2 PUFFS BID CONTINUE O2/SINGULAIR/DUONEB PRN FOLLOW UP WITH CHEMICAL PROCESS OPERATOR FROM [facility] REGARDING UNTREATED OSAS ANTIBIOTICS/ENT EVAL/CONSIDER ID MONICA CAPPS MD
[2017-07-03] MEDS ORDERED: FUROSEMIDE 40 MG/4 ML INJECTABLE VIAL IVPUSH ONE (11:36)
[2017-07-03] MEDS ORDERED: BUDESONIDE/FORMETEROL FUMARATE 160/4.5 mcg INHALER IH SCH (11:41)
--- NOTE | 2017-07-03 12:17 | CON.ENT ---
Consult Consult Specialty:: ENT Reason for Consultation:: Blood seen in right ear - History of Present Illness Chief Complaint: Recent dizziness/hearing issues/?blood in canal History of Present Illness: 71 yo male with multiple medical problems notes recent dizziness and SOB for a few day.. He was blowing his nose yesterday and felt a popping sensation in his ear. This was followed by inserting a tweezer in his ear. On exam in ER, blood was seen. Pt denies any true bloody discharge from ear. Dizziness occurs with standing and walking. No signficant nasal congestion except for blowing nose. CT of head showed clear middle ears and A/F level in max sinuses. - History Source History Provided By: Patient, Family Member - Past Medical History SCOOPER: No: Alzheimer's Cardio/Vascular: No: AFIB Pulmonary: Yes: COPD, O2 Dependent, Pulmonary Fibrosis, Sleep Apnea. No: Previously Intubated, Pulmonary Embolus Gastrointestinal: No: Ascites Hepatobiliary: No: Cirrhosis Renal/: Yes: Cancer, Other (s/p nephrectomy) Psych: No: Addictions Rheumatology: No: Fibromyalgia ENT: Yes: Other (hearing loss, dizziness) - Past Surgical History Additional Surgical History: nephrectomy - Alcohol/Substance Use Hx Alcohol Use: No - Smoking History Smoking history: Former smoker Have you smoked in the past 12 months: No If you are a former smoker, when did you quit?: 2000 - Social History Usual Living Arrangement: With Spouse ADL: Independent History of Recent Travel: No Home Medications - Allergies Allergies/Adverse Reactions: Allergies Allergy/AdvReac Type Severity Reaction Status Date / Time hydrochlorothiazide Allergy Swelling Verified 07/02/17 12:12 [From Hyzaar] ibuprofen [From Advil] Allergy Swelling Verified 07/02/17 12:12 losartan [From Hyzaar] Allergy Swelling Verified 07/02/17 12:12 - Home Medications Home Medications: Ambulatory Orders Atorvastatin Calcium [Lipitor] 10 mg PO DAILY 07/02/17 Budesonide/Formeterol Fumarate [SYMBICORT 160/4.5mcg -] 1 inh PO BID 07/02/17 Clonidine HCl 0.1 mg PO BID 07/02/17 Folic Acid 1 mg PO DAILY 07/02/17 Furosemide [Lasix] 40 mg PO DAILY 07/02/17 Metoprolol Succinate [Toprol Xl] 50 mg PO DAILY 07/02/17 Metoprolol Succinate [Toprol Xl] 100 mg PO DAILY 07/02/17 Montelukast Sodium [Singulair] 10 mg PO DAILY 07/02/17 Potassium Chloride [K-Dur -] 10 meq PO BID 07/02/17 Glimepiride [Amaryl] 2 mg PO ACBK 07/03/17 Review of Systems - Review of Systems HENT: reports: Hearing Loss, Other (dizziness) Respiratory: reports: SOB Physical Exam-ENT Vital Signs: Vital Signs Temperature 97.5 F L 07/03/17 09:00 Pulse Rate 62 07/03/17 11:35 Respiratory Rate 22 07/03/17 09:00 Blood Pressure 152/82 07/03/17 09:00 O2 Sat by Pulse Oximetry (%) 95 07/03/17 11:35 Constitutional: Yes: Well Nourished, No Distress Head: Yes: WNL Face: Yes: WNL, No Sinus Tenderness, Normal Salivary Glands Eyes: Yes: EOM Intact Nose: Yes: Septum Deviated Nasal Passage: Yes: Pale Oral/Pharynx: Yes: WNL Outer Ear: Yes: WNL Ear Canal: Yes: Cerumen (dark cerumen inferior canal, NO active bleeding, TM intact- no middle ear fluid) Tympanic Membrane: Yes: WNL (No perforation) Neck: Yes: WNL, Supple Neurological: Yes: Cran Nerves II-XII Intact Imaging - Results Cat Scan: Report Reviewed, Image Reviewed (No middle ear fluid, normal brain, +A /F level in max sinus) Problem List - Problems (1) Dizziness Assessment/Plan: Recent dizziness/decreased hearing/instrumentation into right ear canal- dark cerumen noted on floor of canal, intact TM without middle ear effusion. No acute pathology noted. Recommend audiogram upon discharge as an outpatient. Code(s): R42 - DIZZINESS AND GIDDINESS (2) Sinusitis Assessment/Plan: Air fluid level noted on Head CT scan with cough and congestion- started on PO Zithromax, use saline rinses. Follow-up as outpatient as above. Code(s): J32.9 - CHRONIC SINUSITIS, UNSPECIFIED Qualifiers: Sinusitis location: maxillary Chronicity: acute
--- NOTE | 2017-07-03 12:21 | PN ---
Physical Exam: SUBJECTIVE: Patient seen and examined at the bedside. More short of breath this morning with ambulation. OBJECTIVE: Bilateral lung crackles at the bases, will give Lasix 40mg IV now Albuterol treatment now Baseline home oxygen 02 @ 6 liters, tolerating between 4-5 liters here but de- sats with ambulation ID consult for possible broader sprectrum antibiotic coverage, remains afebrile , wbc wnl Transfer to [facility] for continuous pulse ox monitoring Vital Signs Period Temp Pulse Resp BP Sys/Hall Pulse Ox Last 24 Hr 97.5 F-98.2 F 57-69 18-22 125-152/79-83 92-95 GENERAL: Awake, alert, and fully oriented, in no acute distress. HEAD: Normal with no signs of trauma. EYES: Pupils equal, round and reactive to light, extraocular movements intact, sclera anicteric, conjunctiva clear. No lid lag. EARS, NOSE, THROAT: Right ear tympanic bleeding behind tympanic membrane, sinusitis seen on head CT NECK: Normal range of motion, supple without lymphadenopathy, JVD, or masses. LUNGS:No wheezing, + right crackles on RLL, Left lung clear/diminshed at base HEART: Regular rate and rhythm ABDOMEN: obese abd., soft, non tender UPPER EXTREMITIES: 2+ pulses, warm, well-perfused. No cyanosis. No clubbing. No peripheral edema. LOWER EXTREMITIES: +1-+2 lower ext edema NEUROLOGICAL: Normal speech, some conversational dyspnea PSYCHIATRIC: Cooperative. Good eye contact. Appropriate mood and affect. SKIN: Warm, dry, normal turgor, no rashes or lesions noted, normal capillary refill. Laboratory Results - last 24 hr 07/02/17 07/02/17 07/02/17 13:36 13:36 13:40 WBC RBC Hgb Hct MCV MCH MCHC RDW Plt Count MPV Neutrophils % Lymphocytes % Monocytes % Eosinophils % Basophils % PT with INR INR PTT (Actin FS) Puncture Site Right radial ABG pH 7.43 ABG pCO2 at Pt Temp 50.2 H ABG pO2 at Pt Temp 73.3 ABG HCO3 32.4 H ABG O2 Sat (Measured) 94.8 ABG O2 Content 18.4 ABG Base Excess 7.0 H Richard Test Positive Carboxyhemoglobin Methemoglobin O2 Delivery Device Nasal Oxygen Flow Rate 4 lpm PEEP 0.0 Sodium Potassium Chloride Carbon Dioxide Anion Gap BUN Creatinine Creat Clearance w eGFR POC Glucometer Random Glucose Hemoglobin A1c % Lactic Acid Calcium Magnesium Total Bilirubin AST ALT Alkaline Phosphatase Creatine Kinase 128 Troponin I < 0.02 B-Natriuretic Peptide 251.26 H Total Protein Albumin Triglycerides Cholesterol Total LDL Cholesterol HDL Cholesterol Urine Color Ltyellow Urine Appearance Clear Urine pH 7.0 Ur Specific [place] 1.016 Urine Protein Negative Urine Glucose (UA) Negative Urine Ketones Negative Urine Blood Negative Urine Nitrite Negative Urine Bilirubin Negative Urine Urobilinogen Negative Ur Leukocyte Esterase Negative 07/02/17 07/02/17 07/02/17 13:40 14:00 14:00 WBC 9.6 RBC 4.57 Hgb 13.9 Hct 43.1 MCV 94.1 MCH 30.3 MCHC 32.2 RDW 15.2 Plt Count 173 MPV 7.7 Neutrophils % 81.7 Lymphocytes % 9.1 Monocytes % 7.9 Eosinophils % 1.0 Basophils % 0.3 PT with INR INR PTT (Actin FS) Puncture Site ABG pH ABG pCO2 at Pt Temp ABG pO2 at Pt Temp ABG HCO3 ABG O2 Sat (Measured) ABG O2 Content ABG Base Excess Richard Test Carboxyhemoglobin 1.3 Methemoglobin 1.0 O2 Delivery Device Oxygen Flow Rate PEEP Sodium Potassium Chloride Carbon Dioxide Anion Gap BUN Creatinine Creat Clearance w eGFR POC Glucometer Random Glucose Hemoglobin A1c % Lactic Acid Calcium Magnesium Total Bilirubin AST ALT Alkaline Phosphatase Creatine Kinase Troponin I B-Natriuretic Peptide Cancelled Total Protein Albumin Triglycerides Cholesterol Total LDL Cholesterol HDL Cholesterol Urine Color Urine Appearance Urine pH Ur Specific [place] Urine Protein Urine Glucose (UA) Urine Ketones Urine Blood Urine Nitrite Urine Bilirubin Urine Urobilinogen Ur Leukocyte Esterase 07/02/17 07/02/17 07/02/17 14:00 14:00 14:00 WBC RBC Hgb Hct MCV MCH MCHC RDW Plt Count MPV Neutrophils % Lymphocytes % Monocytes % Eosinophils % Basophils % PT with INR 10.30 INR 0.91 PTT (Actin FS) 27.0 Puncture Site ABG pH ABG pCO2 at Pt Temp ABG pO2 at Pt Temp ABG HCO3 ABG O2 Sat (Measured) ABG O2 Content ABG Base Excess Richard Test Carboxyhemoglobin Methemoglobin O2 Delivery Device Oxygen Flow Rate PEEP Sodium 139 Potassium 4.3 Chloride 99 Carbon Dioxide 31 Anion Gap 9 BUN 28 H Creatinine 1.1 Creat Clearance w eGFR > 60 POC Glucometer Random Glucose 161 H Hemoglobin A1c % Lactic Acid 1.7 Calcium 8.9 Magnesium Total Bilirubin 0.5 AST 32 ALT 46 Alkaline Phosphatase 207 H Creatine Kinase Troponin I B-Natriuretic Peptide Total Protein 6.7 Albumin 3.3 L Triglycerides Cholesterol Total LDL Cholesterol HDL Cholesterol Urine Color Urine Appearance Urine pH Ur Specific [place] Urine Protein Urine Glucose (UA) Urine Ketones Urine Blood Urine Nitrite Urine Bilirubin Urine Urobilinogen Ur Leukocyte Esterase 07/02/17 07/02/17 07/03/17 17:50 22:11 05:56 WBC RBC Hgb Hct MCV MCH MCHC RDW Plt Count MPV Neutrophils % Lymphocytes % Monocytes % Eosinophils % Basophils % PT with INR INR PTT (Actin FS) Puncture Site ABG pH ABG pCO2 at Pt Temp ABG pO2 at Pt Temp ABG HCO3 ABG O2 Sat (Measured) ABG O2 Content ABG Base Excess Richard Test Carboxyhemoglobin Methemoglobin O2 Delivery Device Oxygen Flow Rate PEEP Sodium Potassium Chloride Carbon Dioxide Anion Gap BUN Creatinine Creat Clearance w eGFR POC Glucometer 125 94 Random Glucose Hemoglobin A1c % Lactic Acid Calcium Magnesium Total Bilirubin AST ALT Alkaline Phosphatase Creatine Kinase Troponin I < 0.02 B-Natriuretic Peptide Total Protein Albumin Triglycerides Cholesterol Total LDL Cholesterol HDL Cholesterol Urine Color Urine Appearance Urine pH Ur Specific [place] Urine Protein Urine Glucose (UA) Urine Ketones Urine Blood Urine Nitrite Urine Bilirubin Urine Urobilinogen Ur Leukocyte Esterase 07/03/17 07/03/17 07/03/17 06:00 06:00 06:00 WBC 8.1 RBC 4.31 Hgb 13.3 Hct 40.9 MCV 94.8 MCH 30.7 MCHC 32.4 RDW 15.6 Plt Count 145 MPV 7.7 Neutrophils % Lymphocytes % Monocytes % Eosinophils % Basophils % PT with INR INR PTT (Actin FS) Puncture Site ABG pH ABG pCO2 at Pt Temp ABG pO2 at Pt Temp ABG HCO3 ABG O2 Sat (Measured) ABG O2 Content ABG Base Excess Richard Test Carboxyhemoglobin Methemoglobin O2 Delivery Device Oxygen Flow Rate PEEP Sodium 140 Potassium 4.2 Chloride 102 Carbon Dioxide 33 H Anion Gap 5 L BUN 24 H Creatinine 1.0 Creat Clearance w eGFR > 60 POC Glucometer Random Glucose 88 D Hemoglobin A1c % Lactic Acid Calcium 8.3 L Magnesium 2.6 H Total Bilirubin 0.7 D AST 23 D ALT 42 Alkaline Phosphatase 159 H D Creatine Kinase Troponin I B-Natriuretic Peptide Total Protein 5.9 L Albumin 3.0 L Triglycerides 96 Cholesterol 160 Total LDL Cholesterol 61 HDL Cholesterol 95 H Urine Color Urine Appearance Urine pH Ur Specific [place] Urine Protein Urine Glucose (UA) Urine Ketones Urine Blood Urine Nitrite Urine Bilirubin Urine Urobilinogen Ur Leukocyte Esterase 07/03/17 07/03/17 06:00 11:59 WBC RBC Hgb Hct MCV MCH MCHC RDW Plt Count MPV Neutrophils % Lymphocytes % Monocytes % Eosinophils % Basophils % PT with INR INR PTT (Actin FS) Puncture Site ABG pH ABG pCO2 at Pt Temp ABG pO2 at Pt Temp ABG HCO3 ABG O2 Sat (Measured) ABG O2 Content ABG Base Excess Richard Test Carboxyhemoglobin Methemoglobin O2 Delivery Device Oxygen Flow Rate PEEP Sodium Potassium Chloride Carbon Dioxide Anion Gap BUN Creatinine Creat Clearance w eGFR POC Glucometer 107 Random Glucose Hemoglobin A1c % 6.3 H Lactic Acid Calcium Magnesium Total Bilirubin AST ALT Alkaline Phosphatase Creatine Kinase Troponin I B-Natriuretic Peptide Total Protein Albumin Triglycerides Cholesterol Total LDL Cholesterol HDL Cholesterol Urine Color Urine Appearance Urine pH Ur Specific [place] Urine Protein Urine Glucose (UA) Urine Ketones Urine Blood Urine Nitrite Urine Bilirubin Urine Urobilinogen Ur Leukocyte Esterase Active Medications Generic Name Dose Route Start Last Admin Trade Name Freq PRN Reason Stop Dose Admin Albuterol/Ipratropium 1 amp 07/02/17 17:46 07/03/17 11:35 Duoneb - NEB 1 amp Q6H PRN Administration SHORTNESS OF BREATH Atorvastatin Calcium 10 mg 07/03/17 22:00 Lipitor - PO HS MELI Budesonide/Formoterol Fumarate 2 puff 07/03/17 11:41 Symbicort 160/4.5mcg - IH BID MELI Clonidine 0.1 mg 07/02/17 22:00 07/03/17 09:14 Catapres - PO 0.1 mg BID MELI Administration Folic Acid 1 mg 07/03/17 10:00 07/03/17 09:14 Folic Acid - PO 1 mg DAILY MELI Administration Furosemide 40 mg 07/03/17 10:00 07/03/17 09:14 Lasix - PO 40 mg DAILY MELI Administration Azithromycin 500 mg/ Dextrose 250 mls @ 250 mls/hr 07/02/17 18:30 07/03/17 10 :47 IVPB 250 mls/hr DAILY MELI Administration Insulin Aspart 1 vial 07/02/17 22:00 07/03/17 12:00 Novolog Vial Sliding Scale - SQ Not Given ACHS MELI Protocol Meclizine HCl 12.5 mg 07/03/17 00:00 07/03/17 05:51 Antivert - PO 12.5 mg Q6HPO MELI Administration Metoprolol Succinate 150 mg 07/03/17 10:00 07/03/17 09:14 Toprol Xl - PO 150 mg DAILY MELI Administration Montelukast Sodium 10 mg 07/03/17 22:00 Singulair - PO HS MELI Potassium Chloride 10 meq 07/02/17 22:00 07/03/17 09:14 K-Dur - PO 10 meq BID MELI Administration Sodium Chloride 2 spray 07/02/17 18:54 [place] Nasal [place] - NS BID PRN NASAL CONGESTION ASSESSMENT/PLAN: Patient is a 71 year old male with a significant past medical history of COPD ( home oxygen dependent), pulmonary fibrosis, diabetes, hypertension, CHF, R renal CA s/p nephrectomy without metastatic disease. He presents to the ED today with c/o of feeling lightheaded and dizzy with right ear bleeding. Patient reported that his ear was bothering him earlier so he attempted to place a tweezer inside because he felt that he had an object inside his ear. A small amount of blood was seen behind the right tympanic membrane by the ED physician. Antivert was given in the ED and pt reported that his dizziness has since subsided. A CT scan of the head show no evidence of ICH but extensive sinusitis. Patient is home oxygen dependent and has a history of lung nodules (which patient states it was non cancerous ), interstitial lung disease and COPD. He reports using home oxygen between 4-6 liters at home but has been using 8 liters as patient developed increased demand for home oxygen. He reports that his oxygen sats at home have been in the mid to low 80s on 6-8 liters. His last travel to [place] was in April of 2017 and he usually travels once per year. He denies chest pain or back pain. No tachycardia on exam. In the ED, ABG for metabolic alk + resp acidosis, alk phos 207, BNP 251. Head CT significant for sinusitis Imaging: chest xray 07/02/2017: inspiratory effort with elevated right hemidiaphragm, large heart and central congestive changes Pulmonary: Hypoxia, acute on chronic Acute COPD exacerbation vs. interstitial lung disease flare vs. PE Home oxygen dependent on 6 liters but requiring 8 liters for increased dyspnea ABG shows respiratory acidosis No wheezing on exam, + crackles on RLL Duonebs scheduled, on Symbicort No chest pain, no tachycardia on exam Echo ordered CTA or VQ scan as per pulmonary, pt has right nephrectomy and CTA likely contraindicated Chest xray in a.m. 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 F.E.N. Fluids: none, PO adequate Electrolytes: monitor Nutrition: renal diet Prophylaxis: DVT: ambuation, SCDs GI: deferred disposition: full code
--- NOTE | 2017-07-03 13:04 | PN ---
Progress Note (short form) - Note Progress Note: ID consult dictated poor historian followed by dr silva for cardiology followed by impregnator electrolytic capacitors at [facility] home oxygen due to COPD admitted with dizziness, found to have maxillary sinusitis no recent antibiotics no fevers suggest rocephin for now with switch to po augmentin or ceftin when ready for discharge Problem List - Problems (1) Sinusitis Code(s): J32.9 - CHRONIC SINUSITIS, UNSPECIFIED (2) COPD (chronic obstructive pulmonary disease) Code(s): J44.9 - CHRONIC OBSTRUCTIVE PULMONARY DISEASE, UNSPECIFIED
[2017-07-03] MEDS ORDERED: cefTRIAXone 1 GM/50 ML BAG (PRE-DOCKED) IVPB SCH (14:00)
[2017-07-03] MEDS ORDERED: CEFTRIAXONE 1 G/50 ML PREMIX 50 ML IVPB SCH (14:30)
--- NOTE | 2017-07-03 14:58 | CONS ---
DATE OF CONSULTATION: DATE OF DICTATION: 07/03/2017 REQUESTED BY: Hospitalist Service This is a 71-year-old man originally from [place]; he has been here for more than 30 years; who presented with dizziness and right ear bleeding. His ear had been bothering him earlier, so he tried to poke it with a tweezer; it started bleeding, he felt dizzy, and he came to the ER. He was given Antivert with improvement. He had a CT scan of his head that showed maxillary sinusitis. He was noted to be short of breath. He has a history of coronary artery disease as well as COPD and is oxygen-dependent at home. He was just seen by ENT, who evaluated him for the bleeding from his ear as well as his sinusitis and they felt that he had cerumen in his ear canal. There was no active bleeding with a normal tympanic membrane. There was no perforation as well. He had maxillary sinus air fluid levels on CT scan. He has had no fevers or chills. He is allergic to HYDROCHLOROTHIAZIDE, IBUPROFEN, and LOSARTAN. PAST MEDICAL HISTORY: Notable for COPD; he is on home oxygen. Diabetes, hypertension. SURGICAL HISTORY: Notable for renal cancer; he is status post nephrectomy. He reports he has a history of coronary artery disease and is followed by Dr. Mckenzie. His last travel was to [place] in April. He reports he has chronic shortness of breath. He uses 4 to 5 L of oxygen at home. MEDICATIONS AT HOME: Lipitor, Symbicort, clonidine, folic acid, furosemide, Toprol-XL, Singulair, and potassium. SOCIAL HISTORY: He is a former smoker. He lives at home with his . He has lived in this country for over [place] years. No history of any substance use. REVIEW OF SYSTEMS: As per HPI. PHYSICAL EXAMINATION: Vital Signs: He is a large man; he weighs 287 pounds. Temperature is 97.5, pulse of 69, blood pressure 152/82, respiratory rate is 22, and he is saturating 95% on 5 L. HEENT: He is normocephalic. His eyes are anicteric. He has no sinus tenderness on examination. He has no thrush. Neck: Supple. Lungs: Crackles at the bases. He has no wheezes. Heart: Regular rate and rhythm. Abdomen: Protuberant. I cannot palpate any organomegaly. Extremities: Trace edema. His white count is 8.1, hemoglobin 13.3, platelets are 145. BUN 24, creatinine 1.3. Hemoglobin A1c 6.3. Urinalysis is negative. Cultures are pending. Imaging is as previously described. Chest x-ray shows a large heart and some central congestion. SUMMARY: This is a 71-year-old man that I am asked to comment on antibiotics for sinusitis, is followed by Dr. 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 No recent antibiotics, no fevers. He has no sinus pain on examination. Would suggest Rocephin for now and switch to oral Augmentin or Ceftin when ready for discharge. He denies any history of recent antibiotic use. I spoke with the hospitalist regarding his care. PARAMJIT CRUM M.D. [id number]
--- NOTE | 2017-07-03 17:19 | CON.CARD ---
Cardiology Consult (text) - Consultation Consultation Note: CC: sob 71 yo with h/o HTN, HL, COPD/pulmonary fibrosis (6L home oxygen dependent), jamey , RUL pulmonary nodules, s/p VATS, RUL, RML and RLL wedge resections 10/2016, obesity, recent thrush, NIDDM, R renal CA s/p total nephrectomy without metastatic disease who p/w progressive sob/cough. Chronic HERNANDEZ and cough with worsening sx's over the past month. uses 6 liters at home but has recently needed 8 liters. [place] [place] of the month for these sx's. Noted to have desaturation with minimal ambulation. --> prescribed prednisone. continued to have progression of sx's. Recent worsening of baseine orthopnea. has been compliant with his outpatient lasix (40 PO bid). stable LE edema. Also with bleed from ear after attempting to place a tweezer inside. + assoc dizziness --> improved with Antivert in ER. Head CT significant for sinusitis no cp, palps, syncope, transient neurologic sx's. hx limited due to language barrier. PAST MEDICAL HISTORY/PAST SURGICAL HISTORY: per hpi, additionally recently treated for thrush Social History: Smoking: former smoker Alcohol: none Drugs: none Family History: no premature cad ros: per phi, no f/c/s, n/v/d, rashes, h/a, visual disturbances. Ambulatory Orders Atorvastatin Calcium [Lipitor] 10 mg PO DAILY 07/02/17 Budesonide/Formeterol Fumarate [SYMBICORT 160/4.5mcg -] 1 inh PO BID 07/02/17 Clonidine HCl 0.1 mg PO BID 07/02/17 Folic Acid 1 mg PO DAILY 07/02/17 Furosemide [Lasix] 40 mg PO DAILY 07/02/17 Metoprolol Succinate [Toprol Xl] 50 mg PO DAILY 07/02/17 Montelukast Sodium [Singulair] 10 mg PO DAILY 07/02/17 Potassium Chloride [K-Dur -] 10 meq PO BID 07/02/17 Glimepiride [Amaryl] 2 mg PO ACBK 07/03/17 per office notes: also on nifedipine 20 bid, atorva dose is 20 mg, furosemide dose is 40 bid, also on aldactone 25 mg/day, theophylline 150 mg bid, asa 81 mg/ day Current Medications Albuterol/Ipratropium (Duoneb -) 1 amp NEB Q6H PRN PRN Reason: SHORTNESS OF BREATH Last Admin: 07/03/17 11:35 Dose: 1 amp Atorvastatin Calcium (Lipitor -) 10 mg PO HS [facility] Budesonide/Formoterol Fumarate (Symbicort 160/4.5mcg -) 2 puff IH BID [facility] Clonidine (Catapres -) 0.1 mg PO BID [facility] Last Admin: 07/03/17 09:14 Dose: 0.1 mg Folic Acid (Folic Acid -) 1 mg PO DAILY [facility] Last Admin: 07/03/17 09:14 Dose: 1 mg Furosemide (Lasix -) 40 mg PO DAILY [facility] Last Admin: 07/03/17 09:14 Dose: 40 mg CEFTRIAXONE 1 G/50 ML PREMIX (Ceftriaxone 1 Gm-D5w Bag) 50 mls @ 100 mls/hr IVPB DAILY [facility] Last Admin: 07/03/17 14:43 Dose: 100 mls/hr Insulin Aspart (Novolog Vial Sliding Scale -) 1 vial SQ ACHS MELI PRN Reason: Protocol Last Admin: 07/03/17 12:00 Dose: Not Given Meclizine HCl (Antivert -) 12.5 mg PO Q6HPO [facility] Last Admin: 07/03/17 12:32 Dose: 12.5 mg Metoprolol Succinate (Toprol Xl -) 150 mg PO DAILY [facility] Last Admin: 07/03/17 09:14 Dose: 150 mg Montelukast Sodium (Singulair -) 10 mg PO HS [facility] Potassium Chloride (K-Dur -) 10 meq PO BID [facility] Last Admin: 07/03/17 09:14 Dose: 10 meq Sodium Chloride ([place] -) 2 spray NS BID PRN PRN Reason: NASAL CONGESTION Vital Signs - 24 hr 07/02/17 07/02/17 07/02/17 20:00 20:44 21:00 Temperature 98.1 F Pulse Rate 68 Respiratory 18 Rate Blood Pressure 140/83 O2 Sat by Pulse 95 95 Oximetry (%) 07/03/17 07/03/17 07/03/17 04:55 09:00 11:35 Temperature 97.5 F L 97.5 F L Pulse Rate 57 L 69 62 Respiratory 20 22 Rate Blood Pressure 125/79 152/82 O2 Sat by Pulse 92 L 95 Oximetry (%) 07/03/17 07/03/17 15:00 16:13 Temperature 98.2 F Pulse Rate 64 63 Respiratory 24 24 Rate Blood Pressure 140/86 127/75 O2 Sat by Pulse Oximetry (%) Intake & Output 07/01/17 07/02/17 07/03/17 07/04/17 07:59 07:59 07:59 07:59 Intake Total 480 Output Total 700 2000 Balance -700 -1520 Weight 287 lb 12.8 oz nad, calm jvd tds, neck supple bibasilar rales, nl effort RRR nl s1, s2 no mrg PMI ND obese, + bs soft nt nd, no hsm ext with trace-1+ edema, no c/c no carotid bruits + dp/pt aaox3 no jaundice, diaphoresis. CBC, BMP 07/03/17 06:00 07/03/17 06:00 Selected Entries 07/02/17 12:07 O2 Sat by Pulse 86 L Oximetry (%) Laboratory Tests 07/02/17 07/02/17 07/02/17 13:36 13:40 14:00 INR 0.91 ABG pH 7.43 ABG pCO2 at Pt Temp 50.2 H ABG pO2 at Pt Temp 73.3 Hemoglobin A1c % Lactic Acid Magnesium Total Bilirubin AST ALT Alkaline Phosphatase Creatine Kinase 128 Troponin I < 0.02 B-Natriuretic Peptide 251.26 H Albumin Triglycerides Cholesterol Total LDL Cholesterol HDL Cholesterol 07/02/17 07/02/17 07/03/17 14:00 17:50 06:00 INR ABG pH ABG pCO2 at Pt Temp ABG pO2 at Pt Temp Hemoglobin A1c % Lactic Acid 1.7 Magnesium 2.6 H Total Bilirubin 0.7 D AST 23 D ALT 42 Alkaline Phosphatase 159 H D Creatine Kinase Troponin I < 0.02 B-Natriuretic Peptide Albumin 3.0 L Triglycerides Cholesterol Total LDL Cholesterol HDL Cholesterol 07/03/17 07/03/17 06:00 06:00 INR ABG pH ABG pCO2 at Pt Temp ABG pO2 at Pt Temp Hemoglobin A1c % 6.3 H Lactic Acid Magnesium Total Bilirubin AST ALT Alkaline Phosphatase Creatine Kinase Troponin I B-Natriuretic Peptide Albumin Triglycerides 96 Cholesterol 160 Total LDL Cholesterol 61 HDL Cholesterol 95 H ekg 06/2017: nsr, bordeline lateral STD. tele: SR head ct: sinusitis, no acute intracranial pathology cxr: elevated right hemidiaphragm. central congestive changes. TTE with definity - 05/05/16 CONCLUSIONS : overall borderline normal left ventricular systolic function (segmental); ejection fraction = 57 % normal left ventricular size mild concentric left ventricular hypertrophy abnormal left ventricular diastolic filling pattern moderate pulmonary hypertension mild decreased right ventricular function mild right atrial dilatation mild right ventricular dilatation mild aortic regurgitation mild to moderate sinus of valsalva dilatation cath 08/2016: L/RHC mlad < 30%. oD1 30-50% baseline: lvedp/wedge 10, mpap 29, PVR 3.9 post exercise: lvedp/wedge 15, mpap 32, pvr 2.6 CT Chest - 05/02/17 Comparison is made with prior chest CTs dating back to April 2016: 1. Status post interval right lung wedge resections. Persistent findings of smoking-related lung disease with upper lobe predominant paraseptal emphysema and mild lower lobe fibrotic changes. No definite honeycombing. Ill-defined ground glass opacities may be related to desquamative interstitial pneumonia, as seen on pathology sample 2. A stable 9 mm right middle lobe nodule adjacent to the minor fissure may represent an intrapulmonary lymph node. 3. ~Newly left upper lobe tree-in-bud opacities suggestive of an infectious/inflammatory colitis. Numerous enlarged mediastinal lymph nodes demonstrating interval increase in size from 2016. These could be reactive in nature. A follow-up low-dose CT is advised in 3 months. 4. Dilatation of the main pulmonary artery up to 3.7 cm could reflect underlying pulmonary hypertension. 5. Bilateral gynecomastia could be medication-induced. - PET-CT scan performed that showed some FDG-avidity; mildly avid RUL nodule; hilar adenopathy and FDG-avidity --> DDX: Inflammatory vs infectious vs malignancy - s/p Bronchoscopy - 06/24/16 -- non-diagnostic PFTs - 05/14/16~-- No obstruction. ~Mild restriction. ~No AT. ~Reduced ERV c/w obesity. ~Mild Gas transfer defect A/P 71 yo with h/o HTN, HL, diastolic HF, ao root dilation, COPD/pulmonary fibrosis (6L home oxygen dependent), jamey, RUL pulmonary nodules, s/p VATS, RUL, RML and RLL wedge resections 10/2016, obesity, recent thrush, NIDDM, R renal CA s/p total nephrectomy without metastatic disease who p/w progressive sob/cough. SOB - Slow decompensation over the course of the year. likely multifactorial, acute on chronic sx's. On 6L of O2 at baseline. mgm't of copd/ild component per pulm. - also appears to have component of acute diastolic HF exacerbation, see below. acute diastolic HF exacerbation - appears volume overloaded. on lasix 40 mg bid at baseline. s/p lasix 40 mg IV x 1 today. Would uptitrate regimen to lasix 80 mg iv daily. - strict i/o's, daily weights, bmps. htn - per report on toprol 50 mg/day, clonidine 0.1 mg bid, aldactone 25 mg/day, nifedipine 20 bid, --> decrease toprol dose down to 50 mg/day. Con't clonidine. Add back aldactone 25 mg/day. Monitor bp --> if bp room tomorrow can add back nifedipine - of note patient had allergy to hyzaar non-obstructive cad - recent cath 08/2016. no cp. CE neg x 1. no further enzymes obtained. No acute ischemic changes on ekg. - con't asa, statin. COPD/ ILD (possible uip) with phtn - with superimposed, cardiac disease, jamey - On Breo, symbicort, albuterol inhalers Ao root dilation - con't bb hl - statin
[2017-07-03] MEDS ORDERED: ATORVASTATIN CA 10 MG TABLET (FP) PO SCH (22:00)
[2017-07-03] MEDS ORDERED: MONTELUKAST NA 10 MG TABLET PO SCH (22:00)
[2017-07-04] MEDS: MECLIZINE HCL 12.5 MG TABLET PO SCH ×4 (00:08→17:57)
[2017-07-04] MEDS: INSULIN SLIDING SCALE (NOVOLOG) 1 VIAL SQ SCH ×4 (06:15→21:39)
[2017-07-04] MEDS: ALBUTEROL SO4 2.5/IPRATROPIUM 0.5 INH SOL 3 ML VIAL.NEB. NEB PRN ×2 (07:05→22:20)
[2017-07-04] MEDS ORDERED: SODIUM CHLORIDE NASAL SPRAY 44 ML BOTTLE NS PRN (07:19)
[2017-07-04 07:35] LABS: BASO % 0.5 % (0-2.0); EOS % 3.7 % (0-4.5); HEMATOCRIT 41.2 % (35.4-49); HEMOGLOBIN 13.2 GM/dL (11.7-16.9); LYMPH % 16.1 % (8-40); MCH 30.5 pg (25.7-33.7); MCHC 32.1 g/dl (32.0-35.9); MEAN PLT VOLUME 7.6 fl (7.5-11.1); MONO % 9.2 % (3.8-10.2); NEUT % 70.5 % (42.8-82.8); PLATELET COUNT 144 K/MM3 (134-434); RBC 4.33 M/mm3 (4.00-5.60); RDW 15.7 % (11.9-15.9); WHITE BLOOD COUNT 8.1 K/mm3 (4.0-10.0)
[2017-07-04 08:04] LABS: CHLORIDE 100 mmol/L (98-107); POTASSIUM 4.1 mmol/L (3.5-5.1); SODIUM 140 mmol/L (136-145)
[2017-07-04 08:11] LABS: ALBUMIN 3.1 g/dl (3.4-5.0); ALK PHOS 166 U/L (45-117); ANION GAP 9 (8-16); BILIRUBIN,TOTAL 0.8 mg/dL (0.2-1.0); BLOOD UREA NITROGEN 21 mg/dL (7-18); CALCIUM 8.2 mg/dL (8.5-10.1); CO2 31 mmol/L (21-32); GLUCOSE,RANDOM 117 mg/dL (74-106); MAGNESIUM 2.6 mg/dL (1.8-2.4); SGOT/AST 22 U/L (15-37); SGPT/ALT 41 U/L (12-78); TOT PROT 6.1 g/dl (6.4-8.2)
[2017-07-04] MEDS: cloNIDine HCL 0.1 MG TABLET PO SCH ×2 (09:59→21:39)
[2017-07-04] MEDS: METOPROLOL SUCCINATE 50 MG TAB.SR.24H (FP) PO SCH (09:59)
[2017-07-04] MEDS: CEFTRIAXONE 1 G/50 ML PREMIX 50 ML IVPB SCH (09:59)
[2017-07-04] MEDS: FOLIC ACID 1 MG TABLET (FP) PO SCH (09:59)
[2017-07-04] MEDS: SPIRONOLACTONE 25 MG TABLET (FP) PO SCH (09:59)
[2017-07-04] MEDS ORDERED: METOPROLOL SUCCINATE 100 MG, METOPROLOL SUCCINATE 50 MG PO SCH (10:00)
[2017-07-04] MEDS ORDERED: FUROSEMIDE 40 MG TABLET (FP) PO SCH (10:00)
[2017-07-04] MEDS: BUDESONIDE/FORMETEROL FUMARATE 160/4.5 mcg INHALER IH SCH ×2 (10:00→21:41)
[2017-07-04] MEDS ORDERED: POTASSIUM CHLORIDE TABS 10 MEQ TABLET.ER (FP) PO SCH (10:00)
[2017-07-04] MEDS ORDERED: FUROSEMIDE 40 MG/4 ML INJECTABLE VIAL IVPUSH SCH (10:00)
[2017-07-04] MEDS ORDERED: METOPROLOL SUCCINATE 100 MG TAB.SR.24H (FP) PO SCH (10:00)
--- NOTE | 2017-07-04 12:17 | PN ---
Progress Note (short form) - Note Progress Note: s: still sob but less today. no cp palps dizzy o: Vital Signs Period Temp Pulse Resp BP Sys/Hall Pulse Ox Last 24 Hr 97.4 F-99.2 F 55-76 20-24 113-140/71-98 92-95 nad, calm jvd tds, neck supple bibasilar rales, nl effort RRR nl s1, s2 no mrg abd + bs soft nt nd, no hsm lower exts with trace edema, no c/c aaox3 no jaundice, diaphoresis. Current Medications Generic Name Dose Route Start Last Admin Trade Name Freq PRN Reason Stop Dose Admin Albuterol/Ipratropium 1 amp 07/04/17 07:19 07/04/17 07:05 Duoneb - NEB 1 amp Q6H PRN Administration SHORTNESS OF BREATH Atorvastatin Calcium 20 mg 07/04/17 22:00 Lipitor - PO HS MELI Budesonide/Formoterol Fumarate 2 puff 07/04/17 10:00 07/04/17 10:00 Symbicort 160/4.5mcg - IH 2 puff BID MELI Administration Clonidine 0.1 mg 07/04/17 10:00 07/04/17 09:59 Catapres - PO 0.1 mg BID MELI Administration Folic Acid 1 mg 07/04/17 10:00 07/04/17 09:59 Folic Acid - PO 1 mg DAILY MELI Administration Furosemide 80 mg 07/04/17 10:00 07/04/17 09:59 Lasix Injection - IVPUSH 80 mg DAILY MELI Administration CEFTRIAXONE 1 G/50 ML PREMIX 50 mls @ 100 mls/hr 07/04/17 10:00 07/04/17 09: 59 Ceftriaxone 1 Gm-D5w Bag IVPB 100 mls/hr DAILY MELI Administration Insulin Aspart 1 vial 07/04/17 11:00 Novolog Vial Sliding Scale - SQ ACHS MELI Protocol Meclizine HCl 12.5 mg 07/04/17 12:00 Antivert - PO Q6HPO MELI Metoprolol Succinate 50 mg 07/04/17 10:00 07/04/17 09:59 Toprol Xl - PO 50 mg DAILY MELI Administration Montelukast Sodium 10 mg 07/04/17 22:00 Singulair - PO HS MELI Sodium Chloride 2 spray 07/04/17 07:19 [place] Nasal [place] - NS BID PRN NASAL CONGESTION Spironolactone 25 mg 07/04/17 10:00 07/04/17 09:59 Aldactone - PO 25 mg DAILY MELI Administration CBC, BMP 07/04/17 06:25 07/04/17 06:25 ekg 06/2017: nsr, bordeline lateral STD. tele: SR head ct: sinusitis, no acute intracranial pathology cxr: elevated right hemidiaphragm. central congestive changes. TTE with definity - 05/05/16 CONCLUSIONS : overall borderline normal left ventricular systolic function (segmental); ejection fraction = 57 % normal left ventricular size mild concentric left ventricular hypertrophy abnormal left ventricular diastolic filling pattern moderate pulmonary hypertension mild decreased right ventricular function mild right atrial dilatation mild right ventricular dilatation mild aortic regurgitation mild to moderate sinus of valsalva dilatation cath 08/2016: L/RHC mlad < 30%. oD1 30-50% baseline: lvedp/wedge 10, mpap 29, PVR 3.9 post exercise: lvedp/wedge 15, mpap 32, pvr 2.6 CT Chest - 05/02/17 Comparison is made with prior chest CTs dating back to April 2016: 1. Status post interval right lung wedge resections. Persistent findings of smoking-related lung disease with upper lobe predominant paraseptal emphysema and mild lower lobe fibrotic changes. No definite honeycombing. Ill-defined ground glass opacities may be related to desquamative interstitial pneumonia, as seen on pathology sample 2. A stable 9 mm right middle lobe nodule adjacent to the minor fissure may represent an intrapulmonary lymph node. 3. ~Newly left upper lobe tree-in-bud opacities suggestive of an infectious/inflammatory colitis. Numerous enlarged mediastinal lymph nodes demonstrating interval increase in size from 2016. These could be reactive in nature. A follow-up low-dose CT is advised in 3 months. 4. Dilatation of the main pulmonary artery up to 3.7 cm could reflect underlying pulmonary hypertension. 5. Bilateral gynecomastia could be medication-induced. - PET-CT scan performed that showed some FDG-avidity; mildly avid RUL nodule; hilar adenopathy and FDG-avidity --> DDX: Inflammatory vs infectious vs malignancy - s/p Bronchoscopy - 06/24/16 -- non-diagnostic PFTs - 05/14/16~-- No obstruction. ~Mild restriction. ~No AT. ~Reduced ERV c/w obesity. ~Mild Gas transfer defect A/P 71 yo with h/o HTN, HL, diastolic HF, ao root dilation, COPD/pulmonary fibrosis (6L home oxygen dependent), jamey, RUL pulmonary nodules, s/p VATS, RUL, RML and RLL wedge resections 10/2016, obesity, recent thrush, NIDDM, R renal CA s/p total nephrectomy without metastatic disease who p/w progressive sob/cough. SOB - Slow decompensation over the course of the year. likely multifactorial, acute on chronic sx's. On 6L of O2 at baseline. mgm't of copd/ild component per pulm. - also appears to have component of acute diastolic HF exacerbation, see below. acute diastolic HF exacerbation - appears volume overloaded. on lasix 40 mg bid at baseline. cont lasix 80 mg iv daily. - strict i/o's, daily weights, bmps. htn - cont current meds non-obstructive cad - recent cath 08/2016. no cp. CE neg x 1. no further enzymes obtained. No acute ischemic changes on ekg. - con't asa, statin. COPD/ ILD (possible uip) with phtn - with superimposed, cardiac disease, jamey - On Breo, symbicort, albuterol inhalers Ao root dilation - con't bb hld - statin
--- NOTE | 2017-07-04 12:57 | PN ---
Progress Note (short form) - Note Progress Note: PULMONARY VSS/LOW GRADE TEMP ANICTERIC SCATTERED RHONCHI S1S2 BS+ OBESE LESS EDEMA LABS/MEDS/ENT CONSULT REVIEWED CT/VATS RESULT REVIEWED O2 DEPENDANT COPD/CHRONIC ILD LIKELY OCCUPATIONAL RELATED(HAS BAR GAUGER AND LUBRICATOR TENDER FROM [facility]) HAD WORK UP C/W VATS/WEDGE MAINTAINED ON SYMBICORT BID/HIGH CONCENTRATIONS O2 UNTREATED OSAS HTN/DM ACUTE SINUSITIS BLOODY RIGHT EAR DISCHARGE WILL ORDER SYMBICORT 2 PUFFS BID CONTINUE O2/SINGULAIR/DUONEB PRN FOLLOW UP WITH BAR GAUGER AND LUBRICATOR TENDER FROM [facility] REGARDING UNTREATED OSAS ANTIBIOTICS/ENT EVAL REVIEWED/ R GÉNESIS ARANA Problem List - Problems (1) COPD (chronic obstructive pulmonary disease) Code(s): J44.9 - CHRONIC OBSTRUCTIVE PULMONARY DISEASE, UNSPECIFIED (2) Sleep apnea in adult Code(s): G47.30 - SLEEP APNEA, UNSPECIFIED (3) Otitis externa hemorrhagica Code(s): H60.329 - HEMORRHAGIC OTITIS EXTERNA, UNSPECIFIED EAR (4) Diabetes Code(s): E11.9 - TYPE 2 DIABETES MELLITUS WITHOUT COMPLICATIONS (5) HTN (hypertension) Code(s): I10 - ESSENTIAL (PRIMARY) HYPERTENSION (6) Renal malignant neoplasm Code(s): C64.9 - MALIGNANT NEOPLASM OF UNSP KIDNEY, EXCEPT RENAL PELVIS
--- NOTE | 2017-07-04 20:11 | PN ---
Physical Exam: SUBJECTIVE: Patient seen and examined at bedside. On 4L NC. Dyspneic with speaking, lips cyanotic, delayed cap refill, pulse ox 82%. Increased NC to 6 L with improvement in breathing, rapid resolution of cyanosis, SpO2 91%. OBJECTIVE: Vital Signs Period Temp Pulse Resp BP Sys/Hall Pulse Ox Last 24 Hr 97.4 F-99.2 F 55-76 18-20 113-136/71-98 93-95 GENERAL: The patient is awake, alert, and fully oriented. Dyspneic with speaking. Loose cough. LUNGS: Bibasilar crackles, diminished sounds at the bases. HEART: Regular rate and rhythm, S1, S2 . ABDOMEN: Soft, obese, nontender, nondistended, normoactive bowel sounds, no guarding, no rebound EXTREMITIES: 2+ pulses, warm, well-perfused, no edema. NEUROLOGICAL: Cranial nerves II through XII grossly intact. Speech clear. Gait not observed. PSYCH: Normal mood, normal affect. SKIN: Warm, dry, normal turgor Laboratory Results - last 24 hr 07/03/17 07/04/17 07/04/17 21:10 06:14 06:25 WBC 8.1 RBC 4.33 Hgb 13.2 Hct 41.2 MCV 95.0 MCH 30.5 MCHC 32.1 RDW 15.7 Plt Count 144 MPV 7.6 Neutrophils % 70.5 Lymphocytes % 16.1 D Monocytes % 9.2 Eosinophils % 3.7 D Basophils % 0.5 Sodium Potassium Chloride Carbon Dioxide Anion Gap BUN Creatinine Creat Clearance w eGFR POC Glucometer 120 129 Random Glucose Calcium Magnesium Total Bilirubin AST ALT Alkaline Phosphatase Total Protein Albumin 07/04/17 07/04/17 07/04/17 06:25 12:01 16:26 WBC RBC Hgb Hct MCV MCH MCHC RDW Plt Count MPV Neutrophils % Lymphocytes % Monocytes % Eosinophils % Basophils % Sodium 140 Potassium 4.1 Chloride 100 Carbon Dioxide 31 Anion Gap 9 BUN 21 H Creatinine 1.0 Creat Clearance w eGFR > 60 POC Glucometer 137 130 Random Glucose 117 H D Calcium 8.2 L Magnesium 2.6 H Total Bilirubin 0.8 AST 22 ALT 41 Alkaline Phosphatase 166 H Total Protein 6.1 L Albumin 3.1 L Active Medications Generic Name Dose Route Start Last Admin Trade Name Freq PRN Reason Stop Dose Admin Albuterol/Ipratropium 1 amp 07/04/17 07:19 07/04/17 07:05 Duoneb - NEB 1 amp Q6H PRN Administration SHORTNESS OF BREATH Atorvastatin Calcium 20 mg 07/04/17 22:00 Lipitor - PO HS MELI Budesonide/Formoterol Fumarate 2 puff 07/04/17 10:00 07/04/17 10:00 Symbicort 160/4.5mcg - IH 2 puff BID MELI Administration Clonidine 0.1 mg 07/04/17 10:00 07/04/17 09:59 Catapres - PO 0.1 mg BID MELI Administration Folic Acid 1 mg 07/04/17 10:00 07/04/17 09:59 Folic Acid - PO 1 mg DAILY MELI Administration Furosemide 80 mg 07/04/17 10:00 07/04/17 09:59 Lasix Injection - IVPUSH 80 mg DAILY MELI Administration CEFTRIAXONE 1 G/50 ML PREMIX 50 mls @ 100 mls/hr 07/04/17 10:00 07/04/17 09: 59 Ceftriaxone 1 Gm-D5w Bag IVPB 100 mls/hr DAILY MELI Administration Insulin Aspart 1 vial 07/04/17 11:00 07/04/17 16:40 Novolog Vial Sliding Scale - SQ Not Given ACHS MELI Protocol Meclizine HCl 12.5 mg 07/04/17 12:00 07/04/17 17:57 Antivert - PO 12.5 mg Q6HPO MELI Administration Metoprolol Succinate 50 mg 07/04/17 10:00 07/04/17 09:59 Toprol Xl - PO 50 mg DAILY MELI Administration Montelukast Sodium 10 mg 07/04/17 22:00 Singulair - PO HS [facility] Sodium Chloride 2 spray 07/04/17 07:19 [place] Nasal [place] - NS BID PRN NASAL CONGESTION Spironolactone 25 mg 07/04/17 10:00 07/04/17 09:59 Aldactone - PO 25 mg DAILY MELI Administration ASSESSMENT/PLAN: 71 year-old male with a PMH significant for HTN, non-obstructive CAD, diastolic heart failure, COPD/intersitial lung disease s/p VATS with RUL, RML, RLL wedge resections (10/2016, Derek), COPD on 6L NC at home, OSAS, NIDDM, and renal cancer s/p nephrectomy. Admitted for acute on chronic hypoxemic respiratory failure, acute on chronic diastolic heart failure, acute sinusitis, and minor bleeding from right ear after blowing nose. Sinusitis --07/02 CT head: extensive sinusitis --continue ceftriaxone (day #1) Bleeding from right ear --seen and evaluated by ENT: dark cerumen noted on floor of canal, intact TM without middle ear effusion; no acute pathology --f/u outpatient for audiogram Acute on chronic hypoxemic respiratory failure secondary to COPD/interstitial lung disease --at baseline is dependent on 6-8L NC --discuss high flow O2 with pulmonary --continuous pulse oximetry --continue Symbicort, duonebs --follows with hanger off at [facility] --unclear if sleep studies have been performed, is not on home CPAP Acute on chronic diastolic heart failure --continue Lasix IV 80mg daily, spironolactone --strict I&Os, daily weights Non-obstructive coronary artery disease --recent cath 08/2016 --continue ASA, Lipitor, Toprol XL Hypertension --continue Toprol XL, clonidine, diuretics NIDDM --Novolog sliding scale coverage Renal cancer s/p nephrectomy --renal function stable --monitor closely on diuretics FEN Fluids: PO intake adequate Electrolytes: replete as indicated Nutrition: low sodium DVT prophylaxis: subq heparin, oob, ambulation Physical therapy evaluation Dispo: continues to require inpatient care. Full code. Visit type - Emergency Visit Emergency Visit: Yes ED Registration Date: 07/02/17 Care time: The patient presented to the Emergency Department on the above date and was hospitalized for further evaluation of their emergent condition. - New Patient This patient is new to me today: Yes Date on this admission: 07/04/17 - Critical Care Critical Care patient: No
[2017-07-04] MEDS ORDERED: INSULIN (NOVOLOG) ASPART 100 UNITS/ML 10ML VIAL ONE (21:33)
[2017-07-04] MEDS: ATORVASTATIN CA 20 MG TABLET (FP) PO SCH (21:39)
[2017-07-04] MEDS: MONTELUKAST NA 10 MG TABLET PO SCH (21:39)
[2017-07-04] MEDS: HEPARIN NA (PORCINE) 5,000 UNITS/ML 1ML VIAL SQ SCH (21:44)
[2017-07-04] MEDS ORDERED: ATORVASTATIN CA 10 MG TABLET (FP) PO SCH (22:00)
[2017-07-05] MEDS: MECLIZINE HCL 12.5 MG TABLET PO SCH ×4 (00:13→18:23)
--- NOTE | 2017-07-05 06:03 | PN ---
Physical Exam: SUBJECTIVE: Patient seen and examined oob to chair. Feels breathing is easier. OBJECTIVE: Vital Signs Period Temp Pulse Resp BP Sys/Hall Pulse Ox Last 24 Hr 97.8 F-99.2 F 57-76 18-19 125-137/69-98 93-95 GENERAL: The patient is awake, alert, and fully oriented. LUNGS: Bibasilar crackles,. HEART: Regular rate and rhythm, S1, S2 . ABDOMEN: Soft, obese, nontender, nondistended, normoactive bowel sounds, no guarding, no rebound EXTREMITIES: 2+ pulses, warm, well-perfused, no edema. NEUROLOGICAL: Cranial nerves II through XII grossly intact. Speech clear. Gait not observed. PSYCH: Normal mood, normal affect. SKIN: Warm, dry, normal turgor Laboratory Results - last 24 hr 07/04/17 07/04/17 07/04/17 06:14 06:25 06:25 WBC 8.1 RBC 4.33 Hgb 13.2 Hct 41.2 MCV 95.0 MCH 30.5 MCHC 32.1 RDW 15.7 Plt Count 144 MPV 7.6 Neutrophils % 70.5 Lymphocytes % 16.1 D Monocytes % 9.2 Eosinophils % 3.7 D Basophils % 0.5 Sodium 140 Potassium 4.1 Chloride 100 Carbon Dioxide 31 Anion Gap 9 BUN 21 H Creatinine 1.0 Creat Clearance w eGFR > 60 POC Glucometer 129 Random Glucose 117 H D Calcium 8.2 L Magnesium 2.6 H Total Bilirubin 0.8 AST 22 ALT 41 Alkaline Phosphatase 166 H Total Protein 6.1 L Albumin 3.1 L 07/04/17 07/04/17 07/04/17 12:01 16:26 21:36 WBC RBC Hgb Hct MCV MCH MCHC RDW Plt Count MPV Neutrophils % Lymphocytes % Monocytes % Eosinophils % Basophils % Sodium Potassium Chloride Carbon Dioxide Anion Gap BUN Creatinine Creat Clearance w eGFR POC Glucometer 137 130 133 Random Glucose Calcium Magnesium Total Bilirubin AST ALT Alkaline Phosphatase Total Protein Albumin Active Medications Generic Name Dose Route Start Last Admin Trade Name Freq PRN Reason Stop Dose Admin Albuterol/Ipratropium 1 amp 07/04/17 07:19 07/04/17 22:20 Duoneb - NEB 1 amp Q6H PRN Administration SHORTNESS OF BREATH Aspirin 81 mg 07/05/17 10:00 Ecotrin - PO DAILY MELI Atorvastatin Calcium 20 mg 07/04/17 22:00 07/04/17 21:39 Lipitor - PO 20 mg HS MELI Administration Budesonide/Formoterol Fumarate 2 puff 07/04/17 10:00 07/04/17 21:41 Symbicort 160/4.5mcg - IH 2 puff BID MELI Administration Clonidine 0.1 mg 07/04/17 10:00 07/04/17 21:39 Catapres - PO 0.1 mg BID MELI Administration Folic Acid 1 mg 07/04/17 10:00 07/04/17 09:59 Folic Acid - PO 1 mg DAILY MELI Administration Furosemide 80 mg 07/04/17 10:00 07/04/17 09:59 Lasix Injection - IVPUSH 80 mg DAILY MELI Administration Heparin Sodium (Porcine) 5,000 unit 07/04/17 22:00 07/04/17 21:44 Heparin - SQ 5,000 unit TID MELI Administration CEFTRIAXONE 1 G/50 ML PREMIX 50 mls @ 100 mls/hr 07/04/17 10:00 07/04/17 09: 59 Ceftriaxone 1 Gm-D5w Bag IVPB 100 mls/hr DAILY MELI Administration Insulin Aspart 1 vial 07/04/17 11:00 07/04/17 21:39 Novolog Vial Sliding Scale - SQ Not Given ACHS [facility] Protocol Meclizine HCl 12.5 mg 07/04/17 12:00 07/05/17 00:13 Antivert - PO 12.5 mg Q6HPO MELI Administration Metoprolol Succinate 50 mg 07/04/17 10:00 07/04/17 09:59 Toprol Xl - PO 50 mg DAILY MELI Administration Montelukast Sodium 10 mg 07/04/17 22:00 07/04/17 21:39 Singulair - PO 10 mg HS MELI Administration Sodium Chloride 2 spray 07/04/17 07:19 [place] Nasal [place] - NS BID PRN NASAL CONGESTION Spironolactone 25 mg 07/04/17 10:00 07/04/17 09:59 Aldactone - PO 25 mg DAILY MELI Administration ASSESSMENT/PLAN 71 year-old male with a PMH significant for HTN, non-obstructive CAD, diastolic heart failure, COPD/intersitial lung disease s/p VATS with RUL, RML, RLL wedge resections (10/2016, [facility]), COPD on 6-8L NC at home, OSAS, NIDDM, and renal cancer s/p nephrectomy. Admitted for acute on chronic hypoxemic respiratory failure, acute on chronic diastolic heart failure, acute sinusitis, and minor bleeding from right ear after blowing nose. Sinusitis --07/02 CT head: extensive sinusitis --continue ceftriaxone (day #1) Bleeding from right ear --seen and evaluated by ENT: dark cerumen noted on floor of canal, intact TM without middle ear effusion; no acute pathology --f/u outpatient for audiogram Acute on chronic hypoxemic respiratory failure secondary to COPD/interstitial lung disease --at baseline is dependent on 6-8L NC --discussed high flow O2 with pulmonary; if an option for patient, asked case mgt to find out if patient's present oxygen provider can set him up at home with high flow --continuous pulse oximetry --continue Symbicort, duonebs --follows with airdox fitter at [facility] OSAS --unclear if sleep studies have been performed, is not on home CPAP Acute on chronic diastolic heart failure --increase Lasix IV 80mg to BID, increase spironolactone to 50mg --strict I&Os, daily weights Non-obstructive coronary artery disease --recent cath 08/2016 --continue ASA, Lipitor, Toprol XL Hypertension --continue Toprol XL, clonidine, diuretics NIDDM --Novolog sliding scale coverage Renal cancer s/p nephrectomy --renal function stable --monitor closely on diuretics FEN Fluids: PO intake adequate Electrolytes: replete as indicated Nutrition: low sodium DVT prophylaxis: subq heparin, oob, ambulation Physical therapy evaluation Dispo: continues to require inpatient care. Full code. Visit type - Emergency Visit Emergency Visit: Yes ED Registration Date: 07/02/17 Care time: The patient presented to the Emergency Department on the above date and was hospitalized for further evaluation of their emergent condition. - New Patient This patient is new to me today: No - Critical Care Critical Care patient: No
[2017-07-05] MEDS: ALBUTEROL SO4 2.5/IPRATROPIUM 0.5 INH SOL 3 ML VIAL.NEB. NEB PRN ×2 (06:20→22:59)
[2017-07-05] MEDS: INSULIN SLIDING SCALE (NOVOLOG) 1 VIAL SQ SCH ×4 (06:21→21:59)
[2017-07-05] MEDS: HEPARIN NA (PORCINE) 5,000 UNITS/ML 1ML VIAL SQ SCH ×3 (06:21→21:58)
[2017-07-05 08:00] LABS: BASO % 0.4 % (0-2.0); EOS % 3.7 % (0-4.5); HEMATOCRIT 44.4 % (35.4-49); HEMOGLOBIN 14.4 GM/dL (11.7-16.9); LYMPH % 15.3 % (8-40); MCH 30.6 pg (25.7-33.7); MCHC 32.3 g/dl (32.0-35.9); MEAN CELL VOLUME 94.8 fl (80-96); MEAN PLT VOLUME 7.8 fl (7.5-11.1); MONO % 9.3 % (3.8-10.2); NEUT % 71.3 % (42.8-82.8); PLATELET COUNT 153 K/MM3 (134-434); RBC 4.69 M/mm3 (4.00-5.60); RDW 15.3 % (11.9-15.9); WHITE BLOOD COUNT 7.6 K/mm3 (4.0-10.0)
[2017-07-05 08:28] LABS: CHLORIDE 100 mmol/L (98-107); POTASSIUM 3.9 mmol/L (3.5-5.1); SODIUM 137 mmol/L (136-145)
[2017-07-05 08:37] LABS: ALBUMIN 3.3 g/dl (3.4-5.0); ALK PHOS 188 U/L (45-117); ANION GAP 6 (8-16); BILIRUBIN,TOTAL 1.3 mg/dL (0.2-1.0); BLOOD UREA NITROGEN 22 mg/dL (7-18); CALCIUM 8.4 mg/dL (8.5-10.1); CO2 31 mmol/L (21-32); CREATININE 1.1 mg/dL (0.7-1.3); GLUCOSE,RANDOM 125 mg/dL (74-106); MAGNESIUM 2.6 mg/dL (1.8-2.4); SGOT/AST 21 U/L (15-37); SGPT/ALT 46 U/L (12-78); TOT PROT 6.9 g/dl (6.4-8.2)
[2017-07-05] MEDS: cloNIDine HCL 0.1 MG TABLET PO SCH ×2 (10:11→21:58)
[2017-07-05] MEDS: FOLIC ACID 1 MG TABLET (FP) PO SCH (10:11)
[2017-07-05] MEDS: SPIRONOLACTONE 25 MG TABLET (FP) PO SCH (10:11)
[2017-07-05] MEDS: ASPIRIN COATED 81 MG TABLET.EC PO SCH (10:11)
[2017-07-05] MEDS: CEFTRIAXONE 1 G/50 ML PREMIX 50 ML IVPB SCH (10:11)
[2017-07-05] MEDS: METOPROLOL SUCCINATE 50 MG TAB.SR.24H (FP) PO SCH (10:11)
[2017-07-05] MEDS: BUDESONIDE/FORMETEROL FUMARATE 160/4.5 mcg INHALER IH SCH ×2 (10:29→22:04)
--- NOTE | 2017-07-05 11:26 | PN ---
Progress Note, Physician History of Present Illness: PULMONARY DYSPNEIC,ON NASAL CANNULA 6L O2 SAT 88-89% - Current Medication List Current Medications: Active Medications Albuterol/Ipratropium (Duoneb -) 1 amp NEB Q6H PRN PRN Reason: SHORTNESS OF BREATH Last Admin: 07/05/17 06:20 Dose: 1 amp Aspirin (Ecotrin -) 81 mg PO DAILY [facility] Last Admin: 07/05/17 10:11 Dose: 81 mg Atorvastatin Calcium (Lipitor -) 20 mg PO HS [facility] Last Admin: 07/04/17 21:39 Dose: 20 mg Budesonide/Formoterol Fumarate (Symbicort 160/4.5mcg -) 2 puff IH BID [facility] Last Admin: 07/04/17 21:41 Dose: 2 puff Clonidine (Catapres -) 0.1 mg PO BID [facility] Last Admin: 07/05/17 10:11 Dose: 0.1 mg Folic Acid (Folic Acid -) 1 mg PO DAILY [facility] Last Admin: 07/05/17 10:11 Dose: 1 mg Furosemide (Lasix Injection -) 80 mg IVPUSH BID@0600,1800 STA Stop: 07/05/17 11:09 Heparin Sodium (Porcine) (Heparin -) 5,000 unit SQ TID [facility] Last Admin: 07/05/17 06:21 Dose: 5,000 unit CEFTRIAXONE 1 G/50 ML PREMIX (Ceftriaxone 1 Gm-D5w Bag) 50 mls @ 100 mls/hr IVPB DAILY [facility] Last Admin: 07/05/17 10:11 Dose: 100 mls/hr Insulin Aspart (Novolog Vial Sliding Scale -) 1 vial SQ ACHS [facility] PRN Reason: Protocol Last Admin: 07/05/17 06:21 Dose: Not Given Meclizine HCl (Antivert -) 12.5 mg PO Q6HPO [facility] Last Admin: 07/05/17 06:21 Dose: 12.5 mg Metoprolol Succinate (Toprol Xl -) 50 mg PO DAILY [facility] Last Admin: 07/05/17 10:11 Dose: 50 mg Montelukast Sodium (Singulair -) 10 mg PO HS [facility] Last Admin: 07/04/17 21:39 Dose: 10 mg Sodium Chloride ([place] Nasal [place] -) 2 spray NS BID PRN PRN Reason: NASAL CONGESTION Spironolactone (Aldactone -) 25 mg PO DAILY [facility] Last Admin: 07/05/17 10:11 Dose: 25 mg - Objective Vital Signs: Vital Signs Temperature 97.8 F 07/04/17 22:00 Pulse Rate 62 07/05/17 02:00 Respiratory Rate 19 07/04/17 22:00 Blood Pressure 125/69 07/05/17 02:00 O2 Sat by Pulse Oximetry (%) 93 L 07/04/17 21:00 Constitutional: Yes: Obese, Other (DYSPNEIC) Eyes: Yes: WNL HENT: Yes: WNL Neck: Yes: WNL Cardiovascular: Yes: Regular Rate and Rhythm, S1, S2 Respiratory: Yes: Rales (BILATERAL CRACKLES) Gastrointestinal: Yes: Normal Bowel Sounds, Soft Extremities: Yes: WNL Edema: Yes Labs: CBC, BMP 07/05/17 07:34 07/05/17 07:34 INR, PTT INR 0.91 (0.82-1.09) 07/02/17 14:00 Assessment/Plan ACUTE ON CHRONIC HYPOXEMIC RESPIRATORY FAILURE O2 DEPENDANT COPD CHRONIC ILD LIKELY OCCUPATIONAL RELATED(HAS WASH WORKER FROM [facility]) HAD WORK UP C/W VATS/WEDGE MAINTAINED ON SYMBICORT BID/HIGH CONCENTRATIONS O2 UNTREATED OSAS HTNDM ACUTE SINUSITIS SYMBICORT 2 PUFFS BID STEROIDS CONTINUE O2 SINGULAIR DUONEB PRN FOLLOW UP WITH WASH WORKER FROM [facility] REGARDING UNTREATED OSAS ANTIBIOTICS DR RUBY Problem List - Problems (1) COPD (chronic obstructive pulmonary disease) Code(s): J44.9 - CHRONIC OBSTRUCTIVE PULMONARY DISEASE, UNSPECIFIED (2) Sleep apnea in adult Code(s): G47.30 - SLEEP APNEA, UNSPECIFIED (3) Otitis externa hemorrhagica Code(s): H60.329 - HEMORRHAGIC OTITIS EXTERNA, UNSPECIFIED EAR (4) Diabetes Code(s): E11.9 - TYPE 2 DIABETES MELLITUS WITHOUT COMPLICATIONS (5) HTN (hypertension) Code(s): I10 - ESSENTIAL (PRIMARY) HYPERTENSION (6) Renal malignant neoplasm Code(s): C64.9 - MALIGNANT NEOPLASM OF UNSP KIDNEY, EXCEPT RENAL PELVIS
[2017-07-05] MEDS ORDERED: FUROSEMIDE 40 MG/4 ML INJECTABLE VIAL IVPUSH STA (11:30)
--- NOTE | 2017-07-05 12:54 | PN ---
Progress Note (short form) - Note Progress Note: CC: sob s: still sob but less today. no cp palps dizzy. s/p lasix 80 mg IV yesterday and today. o: Current Medications Albuterol/Ipratropium (Duoneb -) 1 amp NEB Q6H PRN PRN Reason: SHORTNESS OF BREATH Last Admin: 07/05/17 06:20 Dose: 1 amp Aspirin (Ecotrin -) 81 mg PO DAILY [facility] Last Admin: 07/05/17 10:11 Dose: 81 mg Atorvastatin Calcium (Lipitor -) 20 mg PO HS [facility] Last Admin: 07/04/17 21:39 Dose: 20 mg Budesonide/Formoterol Fumarate (Symbicort 160/4.5mcg -) 2 puff IH BID [facility] Last Admin: 07/05/17 10:29 Dose: 2 puff Clonidine (Catapres -) 0.1 mg PO BID [facility] Last Admin: 07/05/17 10:11 Dose: 0.1 mg Folic Acid (Folic Acid -) 1 mg PO DAILY [facility] Last Admin: 07/05/17 10:11 Dose: 1 mg Heparin Sodium (Porcine) (Heparin -) 5,000 unit SQ TID [facility] Last Admin: 07/05/17 06:21 Dose: 5,000 unit CEFTRIAXONE 1 G/50 ML PREMIX (Ceftriaxone 1 Gm-D5w Bag) 50 mls @ 100 mls/hr IVPB DAILY [facility] Last Admin: 07/05/17 10:11 Dose: 100 mls/hr Insulin Aspart (Novolog Vial Sliding Scale -) 1 vial SQ ACHS [facility] PRN Reason: Protocol Last Admin: 07/05/17 12:29 Dose: Not Given Meclizine HCl (Antivert -) 12.5 mg PO Q6HPO [facility] Last Admin: 07/05/17 12:31 Dose: 12.5 mg Metoprolol Succinate (Toprol Xl -) 50 mg PO DAILY [facility] Last Admin: 07/05/17 10:11 Dose: 50 mg Montelukast Sodium (Singulair -) 10 mg PO HS [facility] Last Admin: 07/04/17 21:39 Dose: 10 mg Sodium Chloride ([place] Nasal [place] -) 2 spray NS BID PRN PRN Reason: NASAL CONGESTION Spironolactone (Aldactone -) 25 mg PO DAILY [facility] Last Admin: 07/05/17 10:11 Dose: 25 mg Vital Signs - 24 hr 07/04/17 07/04/17 07/04/17 13:50 18:00 21:00 Temperature 98.8 F 98.6 F Pulse Rate 62 67 Pulse Rate [ Supine] Respiratory 18 19 Rate Blood Pressure 125/74 131/76 Blood Pressure [Supine] O2 Sat by Pulse 93 L Oximetry (%) 07/04/17 07/05/17 07/05/17 22:00 02:00 09:00 Temperature 97.8 F Pulse Rate 75 Pulse Rate [ 62 Supine] Respiratory 19 19 Rate Blood Pressure 137/74 Blood Pressure 125/69 [Supine] O2 Sat by Pulse 90 L Oximetry (%) 07/05/17 10:00 Temperature 98.2 F Pulse Rate 89 Pulse Rate [ Supine] Respiratory 19 Rate Blood Pressure 140/69 Blood Pressure [Supine] O2 Sat by Pulse Oximetry (%) Intake & Output 07/03/17 07/04/17 07/05/17 07/06/17 07:59 07:59 07:59 07:59 Intake Total 480 500 Output Total 700 2000 4000 Balance -700 -1520 -3500 Weight 287 lb 12.8 oz 288 lb 12.8 oz 290 lb nad, calm jvd tds, neck supple bibasilar rales, nl effort RRR nl s1, s2 no mrg abd + bs soft nt nd, no hsm lower exts with trace edema, no c/c aaox3 no jaundice, diaphoresis. CBC, BMP 07/05/17 07:34 07/05/17 07:34 ekg 06/2017: nsr, bordeline lateral STD. tele: SR, pac head ct: sinusitis, no acute intracranial pathology cxr: elevated right hemidiaphragm. central congestive changes. TTE with definity - 05/05/16 CONCLUSIONS : overall borderline normal left ventricular systolic function (segmental); ejection fraction = 57 % normal left ventricular size mild concentric left ventricular hypertrophy abnormal left ventricular diastolic filling pattern moderate pulmonary hypertension mild decreased right ventricular function mild right atrial dilatation mild right ventricular dilatation mild aortic regurgitation mild to moderate sinus of valsalva dilatation cath 08/2016: L/RHC mlad < 30%. oD1 30-50% baseline: lvedp/wedge 10, mpap 29, PVR 3.9 post exercise: lvedp/wedge 15, mpap 32, pvr 2.6 CT Chest - 05/02/17 Comparison is made with prior chest CTs dating back to April 2016: 1. Status post interval right lung wedge resections. Persistent findings of smoking-related lung disease with upper lobe predominant paraseptal emphysema and mild lower lobe fibrotic changes. No definite honeycombing. Ill-defined ground glass opacities may be related to desquamative interstitial pneumonia, as seen on pathology sample 2. A stable 9 mm right middle lobe nodule adjacent to the minor fissure may represent an intrapulmonary lymph node. 3. ~Newly left upper lobe tree-in-bud opacities suggestive of an infectious/inflammatory colitis. Numerous enlarged mediastinal lymph nodes demonstrating interval increase in size from 2016. These could be reactive in nature. A follow-up low-dose CT is advised in 3 months. 4. Dilatation of the main pulmonary artery up to 3.7 cm could reflect underlying pulmonary hypertension. 5. Bilateral gynecomastia could be medication-induced. - PET-CT scan performed that showed some FDG-avidity; mildly avid RUL nodule; hilar adenopathy and FDG-avidity --> DDX: Inflammatory vs infectious vs malignancy - s/p Bronchoscopy - 06/24/16 -- non-diagnostic PFTs - 05/14/16~-- No obstruction. ~Mild restriction. ~No AT. ~Reduced ERV c/w obesity. ~Mild Gas transfer defect A/P 71 yo with h/o HTN, HL, diastolic HF, ao root dilation, COPD/pulmonary fibrosis (6L home oxygen dependent), jamey, RUL pulmonary nodules, s/p VATS, RUL, RML and RLL wedge resections 10/2016, obesity, recent thrush, NIDDM, R renal CA s/p total nephrectomy without metastatic disease who p/w progressive sob/cough. SOB - Slow decompensation over the course of the year. likely multifactorial, acute on chronic sx's. On 6L of O2 at baseline. mgm't of copd/ild component per pulm. - also appears to have component of acute diastolic HF exacerbation, see below. acute diastolic HF exacerbation - appears volume overloaded. on lasix 40 mg bid at baseline. - 1/2 Weight increased on lasix 80 mg iv daily yesterday despite good uop. Will increase to bid. - strict i/o's, daily weights, bmps. htn - cont current meds. have not yet resumed home nifedipine. monitor for need to resume. non-obstructive cad - recent cath 08/2016. no cp. CE neg x 1. no further enzymes obtained. No acute ischemic changes on ekg. - con't asa, statin. COPD/ ILD (possible uip) with phtn - with superimposed, cardiac disease, jamey - On Breo, symbicort, albuterol inhalers Ao root dilation - con't bb hld - statin
[2017-07-05] MEDS: FUROSEMIDE 40 MG/4 ML INJECTABLE VIAL IVPUSH SCH (17:55)
[2017-07-05] MEDS ORDERED: FUROSEMIDE 40 MG/4 ML INJECTABLE VIAL IVPUSH SCH (18:00)
[2017-07-05] MEDS ORDERED: ACETAMINOPHEN 325 MG TABLET (FP) PO PRN (21:21)
[2017-07-05] MEDS: ATORVASTATIN CA 20 MG TABLET (FP) PO SCH (21:58)
[2017-07-05] MEDS: MONTELUKAST NA 10 MG TABLET PO SCH (21:58)
[2017-07-06] MEDS: MECLIZINE HCL 12.5 MG TABLET PO SCH ×5 (00:15→17:31)
[2017-07-06] MEDS: HEPARIN NA (PORCINE) 5,000 UNITS/ML 1ML VIAL SQ SCH ×3 (06:06→22:15)
[2017-07-06] MEDS: FUROSEMIDE 40 MG/4 ML INJECTABLE VIAL IVPUSH SCH ×2 (06:07→13:29)
[2017-07-06] MEDS: INSULIN SLIDING SCALE (NOVOLOG) 1 VIAL SQ SCH ×4 (06:11→22:49)
[2017-07-06] MEDS: ALBUTEROL SO4 2.5/IPRATROPIUM 0.5 INH SOL 3 ML VIAL.NEB. NEB PRN (06:50)
[2017-07-06] MEDS: METOPROLOL SUCCINATE 50 MG TAB.SR.24H (FP) PO SCH (10:07)
[2017-07-06] MEDS: SPIRONOLACTONE 25 MG TABLET (FP) PO SCH (10:08)
[2017-07-06] MEDS: cloNIDine HCL 0.1 MG TABLET PO SCH ×2 (10:08→22:20)
[2017-07-06] MEDS: FOLIC ACID 1 MG TABLET (FP) PO SCH (10:08)
[2017-07-06] MEDS: ASPIRIN COATED 81 MG TABLET.EC PO SCH (10:08)
[2017-07-06] MEDS: CEFTRIAXONE 1 G/50 ML PREMIX 50 ML IVPB SCH (10:08)
[2017-07-06] MEDS: BUDESONIDE/FORMETEROL FUMARATE 160/4.5 mcg INHALER IH SCH ×2 (10:09→22:20)
--- NOTE | 2017-07-06 11:17 | PN ---
Progress Note, Physician History of Present Illness: pulmonary alert,oob-chair,less dyspneic,O2 Sat 98% on nasal o2 6L - Current Medication List Current Medications: Active Medications Albuterol/Ipratropium (Duoneb -) 1 amp NEB Q6H PRN PRN Reason: SHORTNESS OF BREATH Last Admin: 07/06/17 06:50 Dose: 1 amp Aspirin (Ecotrin -) 81 mg PO DAILY [facility] Last Admin: 07/06/17 10:08 Dose: 81 mg Atorvastatin Calcium (Lipitor -) 20 mg PO HS [facility] Last Admin: 07/05/17 21:58 Dose: 20 mg Budesonide/Formoterol Fumarate (Symbicort 160/4.5mcg -) 2 puff IH BID [facility] Last Admin: 07/06/17 10:09 Dose: 2 puff Clonidine (Catapres -) 0.1 mg PO BID [facility] Last Admin: 07/06/17 10:08 Dose: 0.1 mg Folic Acid (Folic Acid -) 1 mg PO DAILY [facility] Last Admin: 07/06/17 10:08 Dose: 1 mg Furosemide (Lasix Injection -) 80 mg IVPUSH BID@0600,1400 [facility] Last Admin: 07/06/17 06:07 Dose: 80 mg Heparin Sodium (Porcine) (Heparin -) 5,000 unit SQ TID [facility] Last Admin: 07/06/17 06:06 Dose: 5,000 unit CEFTRIAXONE 1 G/50 ML PREMIX (Ceftriaxone 1 Gm-D5w Bag) 50 mls @ 100 mls/hr IVPB DAILY [facility] Last Admin: 07/06/17 10:08 Dose: 100 mls/hr Insulin Aspart (Novolog Vial Sliding Scale -) 1 vial SQ ACHS [facility] PRN Reason: Protocol Last Admin: 07/06/17 06:11 Dose: Not Given Meclizine HCl (Antivert -) 12.5 mg PO Q6HPO [facility] Last Admin: 07/06/17 06:18 Dose: Not Given Metoprolol Succinate (Toprol Xl -) 50 mg PO DAILY [facility] Last Admin: 07/06/17 10:07 Dose: 50 mg Montelukast Sodium (Singulair -) 10 mg PO HS [facility] Last Admin: 07/05/17 21:58 Dose: 10 mg Sodium Chloride ([place] Nasal [place] -) 2 spray NS BID PRN PRN Reason: NASAL CONGESTION Spironolactone (Aldactone -) 25 mg PO DAILY [facility] Last Admin: 07/06/17 10:08 Dose: 25 mg - Objective Vital Signs: Vital Signs Temperature 98 F 07/06/17 05:39 Pulse Rate 53 L 07/06/17 05:39 Respiratory Rate 20 07/06/17 05:39 Blood Pressure 129/77 07/06/17 05:39 O2 Sat by Pulse Oximetry (%) 91 L 07/05/17 21:00 Constitutional: Yes: Well Nourished, Calm, Obese Eyes: Yes: WNL HENT: Yes: WNL Neck: Yes: WNL Cardiovascular: Yes: Regular Rate and Rhythm, S1, S2 Respiratory: Yes: Rales (BILATERAL CRACKLES 1/2 UP) Gastrointestinal: Yes: Normal Bowel Sounds, Soft Extremities: Yes: WNL Edema: Yes Labs: Assessment/Plan ACUTE ON CHRONIC HYPOXEMIC RESPIRATORY FAILURE O2 DEPENDANT COPD CHRONIC ILD LIKELY OCCUPATIONAL RELATED(HAS CERAMIC TILE INSTALLER FROM [facility]) HAD WORK UP C/W VATS/WEDGE PULMONARY HTN UNTREATED OSAS HTN DM ACUTE SINUSITIS H/O RENAL CELL CA 2000 S/P NEPHRECTOMY SYMBICORT 2 PUFFS BID STEROIDS CONTINUE O2 SINGULAIR DUONEB PRN FOLLOW UP WITH CERAMIC TILE INSTALLER FROM [facility] REGARDING UNTREATED OSAS ANTIBIOTICS ? EVAL FOR LUNG TRANSPLANT PT WILL HAVE TO LOSE AT LEAST 8O-100LBS PULMONARY REHAB DR RUBY Problem List - Problems (1) COPD (chronic obstructive pulmonary disease) Code(s): J44.9 - CHRONIC OBSTRUCTIVE PULMONARY DISEASE, UNSPECIFIED (2) Sleep apnea in adult Code(s): G47.30 - SLEEP APNEA, UNSPECIFIED (3) Otitis externa hemorrhagica Code(s): H60.329 - HEMORRHAGIC OTITIS EXTERNA, UNSPECIFIED EAR (4) Diabetes Code(s): E11.9 - TYPE 2 DIABETES MELLITUS WITHOUT COMPLICATIONS (5) HTN (hypertension) Code(s): I10 - ESSENTIAL (PRIMARY) HYPERTENSION (6) Renal malignant neoplasm Code(s): C64.9 - MALIGNANT NEOPLASM OF UNSP KIDNEY, EXCEPT RENAL PELVIS
--- NOTE | 2017-07-06 11:54 | PN ---
Progress Note (short form) - Note Progress Note: s: sob less today, close to baseline. no cp palps dizzy o: Vital Signs Period Temp Pulse Resp BP Sys/Hall Pulse Ox Last 24 Hr 97.3 F-98.4 F 37-78 20-24 118-148/62-89 91 nad, calm jvd tds, neck supple cta bl nl effort RRR nl s1, s2 no mrg abd + bs soft nt nd, no hsm lower exts with trace edema, no c/c aaox3 no jaundice, diaphoresis. Current Medications Generic Name Dose Route Start Last Admin Trade Name Freq PRN Reason Stop Dose Admin Albuterol/Ipratropium 1 amp 07/04/17 07:19 07/06/17 06:50 Duoneb - NEB 1 amp Q6H PRN Administration SHORTNESS OF BREATH Aspirin 81 mg 07/05/17 10:00 07/06/17 10:08 Ecotrin - PO 81 mg DAILY MELI Administration Atorvastatin Calcium 20 mg 07/04/17 22:00 07/05/17 21:58 Lipitor - PO 20 mg HS MELI Administration Budesonide/Formoterol Fumarate 2 puff 07/04/17 10:00 07/06/17 10:09 Symbicort 160/4.5mcg - IH 2 puff BID MELI Administration Clonidine 0.1 mg 07/04/17 10:00 07/06/17 10:08 Catapres - PO 0.1 mg BID MELI Administration Folic Acid 1 mg 07/04/17 10:00 07/06/17 10:08 Folic Acid - PO 1 mg DAILY MELI Administration Furosemide 80 mg 07/05/17 17:30 07/06/17 06:07 Lasix Injection - IVPUSH 80 mg BID@0600,1400 MELI Administration Heparin Sodium (Porcine) 5,000 unit 07/04/17 22:00 07/06/17 06:06 Heparin - SQ 5,000 unit TID MELI Administration CEFTRIAXONE 1 G/50 ML PREMIX 50 mls @ 100 mls/hr 07/04/17 10:00 07/06/17 10: 08 Ceftriaxone 1 Gm-D5w Bag IVPB 100 mls/hr DAILY MELI Administration Insulin Aspart 1 vial 07/04/17 11:00 07/06/17 06:11 Novolog Vial Sliding Scale - SQ Not Given ACHS MELI Protocol Meclizine HCl 12.5 mg 07/04/17 12:00 07/06/17 06:18 Antivert - PO Not Given Q6HPO MELI Metoprolol Succinate 50 mg 07/04/17 10:00 07/06/17 10:07 Toprol Xl - PO 50 mg DAILY MELI Administration Montelukast Sodium 10 mg 07/04/17 22:00 07/05/17 21:58 Singulair - PO 10 mg HS MELI Administration Sodium Chloride 2 spray 07/04/17 07:19 [place] Nasal [place] - NS BID PRN NASAL CONGESTION Spironolactone 25 mg 07/04/17 10:00 07/06/17 10:08 Aldactone - PO 25 mg DAILY MELI Administration CBC, BMP 07/05/17 07:34 07/05/17 07:34 ekg 06/2017: nsr, bordeline lateral STD. tele: SR head ct: sinusitis, no acute intracranial pathology cxr: elevated right hemidiaphragm. central congestive changes. TTE with definity - 05/05/16 CONCLUSIONS : overall borderline normal left ventricular systolic function (segmental); ejection fraction = 57 % normal left ventricular size mild concentric left ventricular hypertrophy abnormal left ventricular diastolic filling pattern moderate pulmonary hypertension mild decreased right ventricular function mild right atrial dilatation mild right ventricular dilatation mild aortic regurgitation mild to moderate sinus of valsalva dilatation echo 07/2017: nl lv/rv, mild lae, mild tr, mod phtn, mod ao root dil cath 08/2016: L/RHC mlad < 30%. oD1 30-50% baseline: lvedp/wedge 10, mpap 29, PVR 3.9 post exercise: lvedp/wedge 15, mpap 32, pvr 2.6 CT Chest - 05/02/17 Comparison is made with prior chest CTs dating back to April 2016: 1. Status post interval right lung wedge resections. Persistent findings of smoking-related lung disease with upper lobe predominant paraseptal emphysema and mild lower lobe fibrotic changes. No definite honeycombing. Ill-defined ground glass opacities may be related to desquamative interstitial pneumonia, as seen on pathology sample 2. A stable 9 mm right middle lobe nodule adjacent to the minor fissure may represent an intrapulmonary lymph node. 3. ~Newly left upper lobe tree-in-bud opacities suggestive of an infectious/inflammatory colitis. Numerous enlarged mediastinal lymph nodes demonstrating interval increase in size from 2016. These could be reactive in nature. A follow-up low-dose CT is advised in 3 months. 4. Dilatation of the main pulmonary artery up to 3.7 cm could reflect underlying pulmonary hypertension. 5. Bilateral gynecomastia could be medication-induced. - PET-CT scan performed that showed some FDG-avidity; mildly avid RUL nodule; hilar adenopathy and FDG-avidity --> DDX: Inflammatory vs infectious vs malignancy - s/p Bronchoscopy - 06/24/16 -- non-diagnostic PFTs - 05/14/16~-- No obstruction. ~Mild restriction. ~No AT. ~Reduced ERV c/w obesity. ~Mild Gas transfer defect A/P 71 yo with h/o HTN, HL, diastolic HF, ao root dilation, COPD/pulmonary fibrosis (6L home oxygen dependent), jamey, RUL pulmonary nodules, s/p VATS, RUL, RML and RLL wedge resections 10/2016, obesity, recent thrush, NIDDM, R renal CA s/p total nephrectomy without metastatic disease who p/w progressive sob/cough. SOB - Slow decompensation over the course of the year. likely multifactorial, acute on chronic sx's. On 6L of O2 at baseline. mgm't of copd/ild component per pulm. - also appears to have component of acute diastolic HF exacerbation, see below. acute diastolic HF exacerbation - appears volume overloaded. on lasix 40 mg bid at baseline. - 1/2: Weight increased on lasix 80 mg iv daily yesterday despite good uop. Will increase to bid. -3: chf improving, cont lasix 80 iv bid - strict i/o's, daily weights, bmps. htn - cont current meds. have not yet resumed home nifedipine. monitor for need to resume. non-obstructive cad - recent cath 08/2016. no cp. CE neg x 1. no further enzymes obtained. No acute ischemic changes on ekg. - con't asa, statin. COPD/ ILD (possible uip) with phtn - with superimposed, cardiac disease, ajmey - On Breo, symbicort, albuterol inhalers Ao root dilation - con't bb hld - statin dc tele
--- NOTE | 2017-07-06 15:46 | PN ---
Physical Exam: SUBJECTIVE: Patient seen and examined at bedside. Satting 91% on 6L NC. Switched to venti mask 40% and SpO2 increased to 97%. OBJECTIVE: Vital Signs Period Temp Pulse Resp BP Sys/Hall Pulse Ox Last 24 Hr 97.4 F-98.4 F 37-78 20-24 118-148/62-89 91-92 GENERAL: The patient is awake, alert, and fully oriented. Speaking in complete sentences. LUNGS: Bibasilar crackles, better air movement HEART: Regular rate and rhythm, S1, S2 . ABDOMEN: Soft, obese, nontender, nondistended, normoactive bowel sounds, no guarding, no rebound EXTREMITIES: 2+ pulses, warm, well-perfused, no edema. NEUROLOGICAL: Cranial nerves II through XII grossly intact. Speech clear. Gait not observed. PSYCH: Normal mood, normal affect. SKIN: Warm, dry, normal turgor CBCD WBC 7.6 K/mm3 (4.0-10.0) 07/05/17 07:34 RBC 4.69 M/mm3 (4.00-5.60) 07/05/17 07:34 Hgb 14.4 GM/dL (11.7-16.9) 07/05/17 07:34 Hct 44.4 % (35.4-49) 07/05/17 07:34 MCV 94.8 fl (80-96) 07/05/17 07:34 MCHC 32.3 g/dl (32.0-35.9) 07/05/17 07:34 RDW 15.3 % (11.9-15.9) 07/05/17 07:34 Plt Count 153 K/MM3 (134-434) 07/05/17 07:34 MPV 7.8 fl (7.5-11.1) 07/05/17 07:34 CMP Sodium 137 mmol/L (136-145) 07/05/17 07:34 Potassium 3.9 mmol/L (3.5-5.1) 07/05/17 07:34 Chloride 100 mmol/L (98-107) 07/05/17 07:34 Carbon Dioxide 31 mmol/L (21-32) 07/05/17 07:34 Anion Gap 6 (8-16) L 07/05/17 07:34 BUN 22 mg/dL (7-18) H 07/05/17 07:34 Creatinine 1.1 mg/dL (0.7-1.3) 07/05/17 07:34 Creat Clearance w eGFR > 60 (>60) 07/05/17 07:34 Calcium 8.4 mg/dL (8.5-10.1) L 07/05/17 07:34 Total Bilirubin 1.3 mg/dL (0.2-1.0) H D 07/05/17 07:34 AST 21 U/L (15-37) 07/05/17 07:34 ALT 46 U/L (12-78) 07/05/17 07:34 Alkaline Phosphatase 188 U/L (45-117) H 07/05/17 07:34 Total Protein 6.9 g/dl (6.4-8.2) 07/05/17 07:34 Albumin 3.3 g/dl (3.4-5.0) L 07/05/17 07:34 Laboratory Results - last 24 hr 07/05/17 07/05/17 07/06/17 15:43 21:56 06:10 POC Glucometer 161 160 114 07/06/17 12:06 POC Glucometer 161 Active Medications Generic Name Dose Route Start Last Admin Trade Name Freq PRN Reason Stop Dose Admin Albuterol/Ipratropium 1 amp 07/04/17 07:19 07/06/17 06:50 Duoneb - NEB 1 amp Q6H PRN Administration SHORTNESS OF BREATH Aspirin 81 mg 07/05/17 10:00 07/06/17 10:08 Ecotrin - PO 81 mg DAILY MELI Administration Atorvastatin Calcium 20 mg 07/04/17 22:00 07/05/17 21:58 Lipitor - PO 20 mg HS MELI Administration Budesonide/Formoterol Fumarate 2 puff 07/04/17 10:00 07/06/17 10:09 Symbicort 160/4.5mcg - IH 2 puff BID MELI Administration Clonidine 0.1 mg 07/04/17 10:00 07/06/17 10:08 Catapres - PO 0.1 mg BID MELI Administration Folic Acid 1 mg 07/04/17 10:00 07/06/17 10:08 Folic Acid - PO 1 mg DAILY MELI Administration Furosemide 80 mg 07/05/17 17:30 07/06/17 13:29 Lasix Injection - IVPUSH 80 mg BID@0600,1400 MELI Administration Heparin Sodium (Porcine) 5,000 unit 07/04/17 22:00 07/06/17 13:30 Heparin - SQ 5,000 unit TID MELI Administration CEFTRIAXONE 1 G/50 ML PREMIX 50 mls @ 100 mls/hr 07/04/17 10:00 07/06/17 10: 08 Ceftriaxone 1 Gm-D5w Bag IVPB 100 mls/hr DAILY MELI Administration Insulin Aspart 1 vial 07/04/17 11:00 07/06/17 12:15 Novolog Vial Sliding Scale - SQ Not Given ACHS MELI Protocol Meclizine HCl 12.5 mg 07/04/17 12:00 07/06/17 12:15 Antivert - PO 12.5 mg Q6HPO MELI Administration Metoprolol Succinate 50 mg 07/04/17 10:00 07/06/17 10:07 Toprol Xl - PO 50 mg DAILY MELI Administration Montelukast Sodium 10 mg 07/04/17 22:00 07/05/17 21:58 Singulair - PO 10 mg HS MELI Administration Sodium Chloride 2 spray 07/04/17 07:19 [place] Nasal [place] - NS BID PRN NASAL CONGESTION Spironolactone 25 mg 07/04/17 10:00 07/06/17 10:08 Aldactone - PO 25 mg DAILY MELI Administration ASSESSMENT/PLAN 71 year-old male with a PMH significant for HTN, non-obstructive CAD, diastolic heart failure, COPD/intersitial lung disease s/p VATS with RUL, RML, RLL wedge resections (10/2016, [facility]), COPD on 6-8L NC at home, OSAS, NIDDM, and renal cancer s/p nephrectomy. Admitted for acute on chronic hypoxemic respiratory failure, acute on chronic diastolic heart failure, acute sinusitis, and minor bleeding from right ear after blowing nose. Sinusitis --07/02 CT head: extensive sinusitis --continue ceftriaxone (day #3) Bleeding from right ear --seen and evaluated by ENT: dark cerumen noted on floor of canal, intact TM without middle ear effusion; no acute pathology --f/u outpatient for audiogram Acute on chronic hypoxemic respiratory failure secondary to COPD/interstitial lung disease --at baseline is dependent on 6-8L NC but home concentrator can only deliver 5L continuous oxygen --discussed with respiratory care company, scripts/paperwork sent for 10L concentrator for home --continuous pulse oximetry --continue josh Stuart OSAS --unclear if sleep studies have been performed, is not on home CPAP Acute on chronic diastolic heart failure --continue Lasix IV 80mg to BID, increased spironolactone 50mg --strict I&Os, daily weights Non-obstructive coronary artery disease --recent cath 08/2016 --continue ASA, Lipitor, Toprol XL Hypertension --continue Toprol XL, clonidine, diuretics NIDDM --Novolog sliding scale coverage Renal cancer s/p nephrectomy --renal function stable --monitor closely on diuretics FEN Fluids: PO intake adequate Electrolytes: replete as indicated Nutrition: low sodium DVT prophylaxis: subq heparin, oob, ambulation Physical therapy evaluation Dispo: continues to require inpatient care. Full code. Visit type - Emergency Visit Emergency Visit: Yes ED Registration Date: 07/02/17 Care time: The patient presented to the Emergency Department on the above date and was hospitalized for further evaluation of their emergent condition. - New Patient This patient is new to me today: No - Critical Care Critical Care patient: No
[2017-07-06] MEDS: ATORVASTATIN CA 20 MG TABLET (FP) PO SCH (22:20)
[2017-07-06] MEDS: MONTELUKAST NA 10 MG TABLET PO SCH (22:20)
[2017-07-07] MEDS: MECLIZINE HCL 12.5 MG TABLET PO SCH ×4 (00:25→18:00)
[2017-07-07] MEDS: INSULIN SLIDING SCALE (NOVOLOG) 1 VIAL SQ SCH ×4 (06:14→21:39)
[2017-07-07] MEDS: HEPARIN NA (PORCINE) 5,000 UNITS/ML 1ML VIAL SQ SCH ×3 (06:19→21:38)
[2017-07-07] MEDS: FUROSEMIDE 40 MG/4 ML INJECTABLE VIAL IVPUSH SCH (06:19)
[2017-07-07] MEDS: METOPROLOL SUCCINATE 50 MG TAB.SR.24H (FP) PO SCH (10:03)
[2017-07-07] MEDS: cloNIDine HCL 0.1 MG TABLET PO SCH ×2 (10:03→21:38)
[2017-07-07] MEDS: ASPIRIN COATED 81 MG TABLET.EC PO SCH (10:03)
[2017-07-07] MEDS: SPIRONOLACTONE 25 MG TABLET (FP) PO SCH (10:04)
[2017-07-07] MEDS: BUDESONIDE/FORMETEROL FUMARATE 160/4.5 mcg INHALER IH SCH ×2 (10:04→21:57)
[2017-07-07] MEDS: FOLIC ACID 1 MG TABLET (FP) PO SCH (10:04)
[2017-07-07] MEDS: CEFTRIAXONE 1 G/50 ML PREMIX 50 ML IVPB SCH (10:04)
--- NOTE | 2017-07-07 11:12 | PN ---
Progress Note, Physician History of Present Illness: PULMONARY ALERT,OOB-CHAIR ,ON VM,LESS COUGH - Current Medication List Current Medications: Active Medications Albuterol/Ipratropium (Duoneb -) 1 amp NEB Q6H PRN PRN Reason: SHORTNESS OF BREATH Last Admin: 07/06/17 06:50 Dose: 1 amp Aspirin (Ecotrin -) 81 mg PO DAILY [facility] Last Admin: 07/07/17 10:03 Dose: 81 mg Atorvastatin Calcium (Lipitor -) 20 mg PO HS [facility] Last Admin: 07/06/17 22:20 Dose: 20 mg Budesonide/Formoterol Fumarate (Symbicort 160/4.5mcg -) 2 puff IH BID [facility] Last Admin: 07/07/17 10:04 Dose: 2 puff Clonidine (Catapres -) 0.1 mg PO BID [facility] Last Admin: 07/07/17 10:03 Dose: 0.1 mg Folic Acid (Folic Acid -) 1 mg PO DAILY [facility] Last Admin: 07/07/17 10:04 Dose: 1 mg Furosemide (Lasix Injection -) 80 mg IVPUSH BID@0600,1400 [facility] Last Admin: 07/07/17 06:19 Dose: 80 mg Heparin Sodium (Porcine) (Heparin -) 5,000 unit SQ TID [facility] Last Admin: 07/07/17 06:19 Dose: 5,000 unit CEFTRIAXONE 1 G/50 ML PREMIX (Ceftriaxone 1 Gm-D5w Bag) 50 mls @ 100 mls/hr IVPB DAILY [facility] Last Admin: 07/07/17 10:04 Dose: 100 mls/hr Insulin Aspart (Novolog Vial Sliding Scale -) 1 vial SQ ACHS [facility] PRN Reason: Protocol Last Admin: 07/07/17 06:14 Dose: Not Given Meclizine HCl (Antivert -) 12.5 mg PO Q6HPO [facility] Last Admin: 07/07/17 06:20 Dose: 12.5 mg Metoprolol Succinate (Toprol Xl -) 50 mg PO DAILY [facility] Last Admin: 07/07/17 10:03 Dose: 50 mg Montelukast Sodium (Singulair -) 10 mg PO HS [facility] Last Admin: 07/06/17 22:20 Dose: 10 mg Sodium Chloride ([place] Nasal [place] -) 2 spray NS BID PRN PRN Reason: NASAL CONGESTION Spironolactone (Aldactone -) 25 mg PO DAILY MELI Last Admin: 07/07/17 10:04 Dose: 25 mg - Objective Vital Signs: Vital Signs Temperature 98.1 F 07/07/17 05:27 Pulse Rate 58 L 07/07/17 05:27 Respiratory Rate 20 07/07/17 05:27 Blood Pressure 127/80 07/07/17 05:27 O2 Sat by Pulse Oximetry (%) 92 L 07/06/17 20:31 Constitutional: Yes: Calm, Obese Eyes: Yes: WNL HENT: Yes: WNL Neck: Yes: WNL Cardiovascular: Yes: Regular Rate and Rhythm, S1, S2 Respiratory: Yes: Rales ([place] CRACKLES) Gastrointestinal: Yes: Normal Bowel Sounds, Soft Extremities: Yes: WNL Edema: Yes Labs: CBC, BMP 07/05/17 07:34 07/05/17 07:34 INR, PTT INR 0.91 (0.82-1.09) 07/02/17 14:00 Assessment/Plan ACUTE ON CHRONIC HYPOXEMIC RESPIRATORY FAILURE O2 DEPENDANT COPD CHRONIC ILD LIKELY OCCUPATIONAL RELATED(HAS ORE TESTER FROM [facility]) HAD WORK UP C/W VATS/WEDGE PULMONARY HTN UNTREATED OSAS HTN DM ACUTE SINUSITIS H/O RENAL CELL CA 2000 S/P NEPHRECTOMY SYMBICORT 2 PUFFS BID PREDNISONE CONTINUE O2 SINGULAIR DUONEB PRN FOLLOW UP WITH ORE TESTER FROM [facility] REGARDING UNTREATED OSAS ANTIBIOTICS ? EVAL FOR LUNG TRANSPLANT PT WILL HAVE TO LOSE AT LEAST 8O-100LBS PULMONARY REHAB DR RUBY Problem List - Problems (1) COPD (chronic obstructive pulmonary disease) Code(s): J44.9 - CHRONIC OBSTRUCTIVE PULMONARY DISEASE, UNSPECIFIED (2) Sleep apnea in adult Code(s): G47.30 - SLEEP APNEA, UNSPECIFIED (3) Otitis externa hemorrhagica Code(s): H60.329 - HEMORRHAGIC OTITIS EXTERNA, UNSPECIFIED EAR (4) Diabetes Code(s): E11.9 - TYPE 2 DIABETES MELLITUS WITHOUT COMPLICATIONS (5) HTN (hypertension) Code(s): I10 - ESSENTIAL (PRIMARY) HYPERTENSION (6) Renal malignant neoplasm Code(s): C64.9 - MALIGNANT NEOPLASM OF UNSP KIDNEY, EXCEPT RENAL PELVIS
--- NOTE | 2017-07-07 12:10 | PN ---
Progress Note (short form) - Note Progress Note: s: no sob cp palps dizzy o: Vital Signs Period Temp Pulse Resp BP Sys/Hall Pulse Ox Last 24 Hr 97.8 F-99.5 F 58-72 20-26 126-152/76-89 92-95 nad, calm jvd tds, neck supple cta bl nl effort RRR nl s1, s2 no mrg abd + bs soft nt nd, no hsm no le e/c/c aaox3 no jaundice, diaphoresis. Current Medications Generic Name Dose Route Start Last Admin Trade Name Freq PRN Reason Stop Dose Admin Albuterol/Ipratropium 1 amp 07/04/17 07:19 07/06/17 06:50 Duoneb - NEB 1 amp Q6H PRN Administration SHORTNESS OF BREATH Aspirin 81 mg 07/05/17 10:00 07/07/17 10:03 Ecotrin - PO 81 mg DAILY MELI Administration Atorvastatin Calcium 20 mg 07/04/17 22:00 07/06/17 22:20 Lipitor - PO 20 mg HS MELI Administration Budesonide/Formoterol Fumarate 2 puff 07/04/17 10:00 07/07/17 10:04 Symbicort 160/4.5mcg - IH 2 puff BID MELI Administration Clonidine 0.1 mg 07/04/17 10:00 07/07/17 10:03 Catapres - PO 0.1 mg BID MELI Administration Folic Acid 1 mg 07/04/17 10:00 07/07/17 10:04 Folic Acid - PO 1 mg DAILY MELI Administration Furosemide 80 mg 07/07/17 14:00 Lasix - PO BID@0600,1400 MELI Heparin Sodium (Porcine) 5,000 unit 07/04/17 22:00 07/07/17 06:19 Heparin - SQ 5,000 unit TID MELI Administration CEFTRIAXONE 1 G/50 ML PREMIX 50 mls @ 100 mls/hr 07/04/17 10:00 07/07/17 10: 04 Ceftriaxone 1 Gm-D5w Bag IVPB 100 mls/hr DAILY MELI Administration Insulin Aspart 1 vial 07/04/17 11:00 07/07/17 06:14 Novolog Vial Sliding Scale - SQ Not Given ACHS MELI Protocol Meclizine HCl 12.5 mg 07/04/17 12:00 07/07/17 06:20 Antivert - PO 12.5 mg Q6HPO MELI Administration Metoprolol Succinate 50 mg 07/04/17 10:00 07/07/17 10:03 Toprol Xl - PO 50 mg DAILY MELI Administration Montelukast Sodium 10 mg 07/04/17 22:00 07/06/17 22:20 Singulair - PO 10 mg HS MELI Administration Prednisone 30 mg 07/07/17 11:30 Deltasone - PO DAILY MELI Sodium Chloride 2 spray 07/04/17 07:19 [place] Nasal [place] - NS BID PRN NASAL CONGESTION Spironolactone 25 mg 07/04/17 10:00 07/07/17 10:04 Aldactone - PO 25 mg DAILY MELI Administration ekg 06/2017: nsr, bordeline lateral STD. tele: SR head ct: sinusitis, no acute intracranial pathology cxr: elevated right hemidiaphragm. central congestive changes. TTE with definity - 05/05/16 CONCLUSIONS : overall borderline normal left ventricular systolic function (segmental); ejection fraction = 57 % normal left ventricular size mild concentric left ventricular hypertrophy abnormal left ventricular diastolic filling pattern moderate pulmonary hypertension mild decreased right ventricular function mild right atrial dilatation mild right ventricular dilatation mild aortic regurgitation mild to moderate sinus of valsalva dilatation echo 07/2017: nl lv/rv, mild lae, mild tr, mod phtn, mod ao root dil cath 08/2016: L/RHC mlad < 30%. oD1 30-50% baseline: lvedp/wedge 10, mpap 29, PVR 3.9 post exercise: lvedp/wedge 15, mpap 32, pvr 2.6 CT Chest - 05/02/17 Comparison is made with prior chest CTs dating back to April 2016: 1. Status post interval right lung wedge resections. Persistent findings of smoking-related lung disease with upper lobe predominant paraseptal emphysema and mild lower lobe fibrotic changes. No definite honeycombing. Ill-defined ground glass opacities may be related to desquamative interstitial pneumonia, as seen on pathology sample 2. A stable 9 mm right middle lobe nodule adjacent to the minor fissure may represent an intrapulmonary lymph node. 3. ~Newly left upper lobe tree-in-bud opacities suggestive of an infectious/inflammatory colitis. Numerous enlarged mediastinal lymph nodes demonstrating interval increase in size from 2016. These could be reactive in nature. A follow-up low-dose CT is advised in 3 months. 4. Dilatation of the main pulmonary artery up to 3.7 cm could reflect underlying pulmonary hypertension. 5. Bilateral gynecomastia could be medication-induced. - PET-CT scan performed that showed some FDG-avidity; mildly avid RUL nodule; hilar adenopathy and FDG-avidity --> DDX: Inflammatory vs infectious vs malignancy - s/p Bronchoscopy - 06/24/16 -- non-diagnostic PFTs - 05/14/16~-- No obstruction. ~Mild restriction. ~No AT. ~Reduced ERV c/w obesity. ~Mild Gas transfer defect A/P 71 yo with h/o HTN, HL, diastolic HF, ao root dilation, COPD/pulmonary fibrosis (6L home oxygen dependent), jamey, RUL pulmonary nodules, s/p VATS, RUL, RML and RLL wedge resections 10/2016, obesity, recent thrush, NIDDM, R renal CA s/p total nephrectomy without metastatic disease who p/w progressive sob/cough. SOB - Slow decompensation over the course of the year. likely multifactorial, acute on chronic sx's. On 6L of O2 at baseline. mgm't of copd/ild component per pulm. - also appears to have component of acute diastolic HF exacerbation, see below. acute diastolic HF exacerbation - appears volume overloaded. on lasix 40 mg bid at baseline. - 1/2: Weight increased on lasix 80 mg iv daily yesterday despite good uop. Will increase to bid. -07/06: chf improving, cont lasix 80 iv bid -07/07: will change to po lasix 80 bid now - strict i/o's, daily weights, bmps. htn - cont current meds. have not yet resumed home nifedipine. monitor for need to resume. non-obstructive cad - recent cath 08/2016. no cp. CE neg x 1. no further enzymes obtained. No acute ischemic changes on ekg. - con't asa, statin. COPD/ ILD (possible uip) with phtn - with superimposed, cardiac disease, jamey - On Breo, symbicort, albuterol inhalers Ao root dilation - con't bb hld - statin dc tele
[2017-07-07] MEDS: predniSONE 10 MG TABLET (UD) PO SCH (12:26)
[2017-07-07] MEDS: FUROSEMIDE 40 MG TABLET (FP) PO SCH (13:56)
--- NOTE | 2017-07-07 16:39 | PN ---
Physical Exam: SUBJECTIVE: Patient seen and examined. Denies shortness of breath. OBJECTIVE: Vital Signs Period Temp Pulse Resp BP Sys/Hall Pulse Ox Last 24 Hr 97.8 F-99.5 F 58-72 20-26 122-152/69-89 92-95 GENERAL: Awake, alert, and fully oriented, in no acute distress. HEAD: Normal with no signs of trauma. EYES: Pupils equal, round and reactive to light, extraocular movements intact, sclera anicteric, conjunctiva clear. No lid lag. EARS, NOSE, THROAT: Right ear tympanic bleeding behind tympanic membrane, sinusitis seen on head CT NECK: Normal range of motion, supple without lymphadenopathy, JVD, or masses. LUNGS:No wheezing, Left lung clear/diminshed at base, right lung clear/ diminished HEART: Regular rate and rhythm ABDOMEN: obese abd., soft, non tender UPPER EXTREMITIES: 2+ pulses, warm, well-perfused. No cyanosis. No clubbing. No peripheral edema. LOWER EXTREMITIES: +1-+2 lower ext edema NEUROLOGICAL: Normal speech, ambulated with PT PSYCHIATRIC: Cooperative. Good eye contact. Appropriate mood and affect. SKIN: Warm, dry, normal turgor, no rashes or lesions noted, normal capillary refill. Laboratory Results - last 24 hr 07/06/17 07/06/17 07/07/17 17:10 22:38 12:18 POC Glucometer 148 164 137 07/07/17 15:41 POC Glucometer 153 Active Medications Generic Name Dose Route Start Last Admin Trade Name Freq PRN Reason Stop Dose Admin Albuterol/Ipratropium 1 amp 07/04/17 07:19 07/06/17 06:50 Duoneb - NEB 1 amp Q6H PRN Administration SHORTNESS OF BREATH Aspirin 81 mg 07/05/17 10:00 07/07/17 10:03 Ecotrin - PO 81 mg DAILY MELI Administration Atorvastatin Calcium 20 mg 07/04/17 22:00 07/06/17 22:20 Lipitor - PO 20 mg HS MELI Administration Budesonide/Formoterol Fumarate 2 puff 07/04/17 10:00 07/07/17 10:04 Symbicort 160/4.5mcg - IH 2 puff BID MELI Administration Clonidine 0.1 mg 07/04/17 10:07/07/17 10:03 Catapres - PO 0.1 mg BID MELI Administration Folic Acid 1 mg 07/04/17 10:00 07/07/17 10:04 Folic Acid - PO 1 mg DAILY MELI Administration Furosemide 80 mg 07/07/17 14:00 07/07/17 13:56 Lasix - PO 80 mg BID@0600,1400 MLEI Administration Heparin Sodium (Porcine) 5,000 unit 07/04/17 22:00 07/07/17 13:56 Heparin - SQ 5,000 unit TID MELI Administration CEFTRIAXONE 1 G/50 ML PREMIX 50 mls @ 100 mls/hr 07/04/17 10:00 07/07/17 10: 04 Ceftriaxone 1 Gm-D5w Bag IVPB 100 mls/hr DAILY MELI Administration Insulin Aspart 1 vial 07/04/17 11:00 07/07/17 12:23 Novolog Vial Sliding Scale - SQ Not Given ACHS MELI Protocol Meclizine HCl 12.5 mg 07/04/17 12:00 07/07/17 12:26 Antivert - PO 12.5 mg Q6HPO MELI Administration Metoprolol Succinate 50 mg 07/04/17 10:00 07/07/17 10:03 Toprol Xl - PO 50 mg DAILY MELI Administration Montelukast Sodium 10 mg 07/04/17 22:00 07/06/17 22:20 Singulair - PO 10 mg HS MELI Administration Prednisone 30 mg 07/07/17 11:30 07/07/17 12:26 Deltasone - PO 30 mg DAILY MELI Administration Sodium Chloride 2 spray 07/04/17 07:19 [place] Nasal [place] - NS BID PRN NASAL CONGESTION Spironolactone 25 mg 07/04/17 10:00 07/07/17 10:04 Aldactone - PO 25 mg DAILY MELI Administration ASSESSMENT/PLAN: Patient is a 71 year old male with a significant past medical history of COPD ( home oxygen dependent), pulmonary fibrosis, diabetes, hypertension, CHF, R renal CA s/p nephrectomy without metastatic disease. He presents to the ED with c/o of feeling lightheaded and dizzy with right ear bleeding. Patient reported that his ear was bothering him earlier so he attempted to place a tweezer inside because he felt that he had an object inside his ear. A CT scan of the head show no evidence of ICH but extensive sinusitis. Patient is home oxygen dependent and has a history of lung nodules (which patient states it was non cancerous ), interstitial lung disease and COPD. He reports using home oxygen between 4-6 liters at home but has been using 8 liters as patient developed increased demand for home oxygen. He reports that his oxygen sats at home have been in the mid to low 80s on 6-8 liters. Pulmonary: Hypoxia, acute on chronic respiratory failure secondary to COPD/interstitial lung disease Home oxygen dependent on 6 liters, high flow oxygen being ordered for home use, awaiting insurance clearance prior to d/c [place] scheduled, on Symbicort No chest pain, no tachycardia on exam On continuous pulse ox monitoring [place] Maintain oxygen >90% On Lasix 80mg BID [employer] Order Clerk from [facility] for sleep apnea Pulmonary following Cardiology Hypertension, controlled On metoprolol 150mg daily On Clonidine hcl 0.1mg bid CHF, acute on chronic On Lasix 80mg BID Endocrine: Monitor BGMs, Novolog sliding scale ENT: Ear/Nose/Throat Right ear bleeding on presentation No foreign object seen by ENT physician Outpatient audiogram Sinusitits Started on Azithromycin, changed to Ceftriaxone Nasal spray BID Renal R renal CA s/p nephrectomy Monitor renal function closely Avoid nephrotoxic medications BMP in a.m. F.E.N. Fluids: none, PO adequate Electrolytes: monitor Nutrition: renal diet Prophylaxis: DVT: ambuation, SCDs GI: deferred disposition: full code Visit type - Emergency Visit Emergency Visit: Yes ED Registration Date: 07/02/17 Care time: The patient presented to the Emergency Department on the above date and was hospitalized for further evaluation of their emergent condition. - New Patient This patient is new to me today: No - Critical Care Critical Care patient: No - Discharge Referral Referred to [facility] Med P.C.: No
[2017-07-07] MEDS: MONTELUKAST NA 10 MG TABLET PO SCH (21:38)
[2017-07-07] MEDS: ATORVASTATIN CA 20 MG TABLET (FP) PO SCH (21:38)
[2017-07-07] MEDS: ALBUTEROL SO4 2.5/IPRATROPIUM 0.5 INH SOL 3 ML VIAL.NEB. NEB PRN (22:05)
[2017-07-08] MEDS: MECLIZINE HCL 12.5 MG TABLET PO SCH ×3 (00:16→13:30)
[2017-07-08] MEDS: HEPARIN NA (PORCINE) 5,000 UNITS/ML 1ML VIAL SQ SCH ×2 (05:53→13:30)
[2017-07-08] MEDS: FUROSEMIDE 40 MG TABLET (FP) PO SCH ×2 (05:53→13:30)
[2017-07-08] MEDS: INSULIN SLIDING SCALE (NOVOLOG) 1 VIAL SQ SCH ×2 (06:14→12:17)
[2017-07-08] MEDS: ALBUTEROL SO4 2.5/IPRATROPIUM 0.5 INH SOL 3 ML VIAL.NEB. NEB PRN (06:35)
[2017-07-08 08:14] LABS: BASO % 0.5 % (0-2.0); EOS % 2.1 % (0-4.5); HEMATOCRIT 44.8 % (35.4-49); HEMOGLOBIN 14.3 GM/dL (11.7-16.9); LYMPH % 14.5 % (8-40); MCH 30.4 pg (25.7-33.7); MEAN PLT VOLUME 7.8 fl (7.5-11.1); MONO % 8.7 % (3.8-10.2); NEUT % 74.2 % (42.8-82.8); PLATELET COUNT 184 K/MM3 (134-434); RBC 4.72 M/mm3 (4.00-5.60); RDW 14.9 % (11.9-15.9); WHITE BLOOD COUNT 7.5 K/mm3 (4.0-10.0)
[2017-07-08 08:57] LABS: ALBUMIN 3.3 g/dl (3.4-5.0); ANION GAP 6 (8-16); BLOOD UREA NITROGEN 21 mg/dL (7-18); CALCIUM 8.7 mg/dL (8.5-10.1); CHLORIDE 99 mmol/L (98-107); CO2 34 mmol/L (21-32); CREATININE 1.1 mg/dL (0.7-1.3); GLUCOSE,RANDOM 147 mg/dL (74-106); POTASSIUM 3.5 mmol/L (3.5-5.1); SGOT/AST 21 U/L (15-37); SGPT/ALT 51 U/L (12-78); SODIUM 139 mmol/L (136-145)
[2017-07-08 09:00] LABS: ALK PHOS 195 U/L (45-117); BILIRUBIN,TOTAL 0.6 mg/dL (0.2-1.0); TOT PROT 7.1 g/dl (6.4-8.2)
[2017-07-08] MEDS: predniSONE 10 MG TABLET (UD) PO SCH (09:29)
[2017-07-08] MEDS: CEFTRIAXONE 1 G/50 ML PREMIX 50 ML IVPB SCH (09:29)
[2017-07-08] MEDS: BUDESONIDE/FORMETEROL FUMARATE 160/4.5 mcg INHALER IH SCH (09:29)
[2017-07-08] MEDS: cloNIDine HCL 0.1 MG TABLET PO SCH (09:29)
[2017-07-08] MEDS: SPIRONOLACTONE 25 MG TABLET (FP) PO SCH (09:29)
[2017-07-08] MEDS: ASPIRIN COATED 81 MG TABLET.EC PO SCH (09:29)
[2017-07-08] MEDS: METOPROLOL SUCCINATE 50 MG TAB.SR.24H (FP) PO SCH (09:29)
[2017-07-08] MEDS: FOLIC ACID 1 MG TABLET (FP) PO SCH (09:29)
[2017-07-08 10:43] VITALS: BP 133/77; TEMP 98.5
--- NOTE | 2017-07-08 11:32 | PN ---
Progress Note, Physician History of Present Illness: PULMONARY ALERT,OOB-CHAIR ON VM,COMFORTABLE - Current Medication List Current Medications: Active Medications Albuterol/Ipratropium (Duoneb -) 1 amp NEB Q6H PRN PRN Reason: SHORTNESS OF BREATH Last Admin: 07/08/17 06:35 Dose: 1 amp Aspirin (Ecotrin -) 81 mg PO DAILY [facility] Last Admin: 07/08/17 09:29 Dose: 81 mg Atorvastatin Calcium (Lipitor -) 20 mg PO HS [facility] Last Admin: 07/07/17 21:38 Dose: 20 mg Budesonide/Formoterol Fumarate (Symbicort 160/4.5mcg -) 2 puff IH BID [facility] Last Admin: 07/08/17 09:29 Dose: 2 puff Clonidine (Catapres -) 0.1 mg PO BID [facility] Last Admin: 07/08/17 09:29 Dose: 0.1 mg Folic Acid (Folic Acid -) 1 mg PO DAILY [facility] Last Admin: 07/08/17 09:29 Dose: 1 mg Furosemide (Lasix -) 80 mg PO BID@0600,1400 [facility] Last Admin: 07/08/17 05:53 Dose: 80 mg Heparin Sodium (Porcine) (Heparin -) 5,000 unit SQ TID [facility] Last Admin: 07/08/17 05:53 Dose: 5,000 unit CEFTRIAXONE 1 G/50 ML PREMIX (Ceftriaxone 1 Gm-D5w Bag) 50 mls @ 100 mls/hr IVPB DAILY [facility] Last Admin: 07/08/17 09:29 Dose: 100 mls/hr Insulin Aspart (Novolog Vial Sliding Scale -) 1 vial SQ ACHS [facility] PRN Reason: Protocol Last Admin: 07/08/17 06:14 Dose: Not Given Meclizine HCl (Antivert -) 12.5 mg PO Q6HPO [facility] Last Admin: 07/08/17 05:53 Dose: 12.5 mg Metoprolol Succinate (Toprol Xl -) 50 mg PO DAILY [facility] Last Admin: 07/08/17 09:29 Dose: 50 mg Montelukast Sodium (Singulair -) 10 mg PO HS [facility] Last Admin: 07/07/17 21:38 Dose: 10 mg Prednisone (Deltasone -) 30 mg PO DAILY [facility] Last Admin: 07/08/17 09:29 Dose: 30 mg Sodium Chloride ([place] Nasal [place] -) 2 spray NS BID PRN PRN Reason: NASAL CONGESTION Spironolactone (Aldactone -) 25 mg PO DAILY MELI Last Admin: 07/08/17 09:29 Dose: 25 mg - Objective Vital Signs: Vital Signs Temperature 98.5 F 07/08/17 10:00 Pulse Rate 54 L 07/08/17 10:00 Respiratory Rate 22 07/08/17 10:00 Blood Pressure 133/77 07/08/17 10:00 O2 Sat by Pulse Oximetry (%) 95 07/08/17 10:00 Constitutional: Yes: Well Nourished, Calm, Obese HENT: Yes: WNL Neck: Yes: WNL Cardiovascular: Yes: Regular Rate and Rhythm, S1, S2 Respiratory: Yes: Rales (BILATERAL CRACKLES) Gastrointestinal: Yes: Normal Bowel Sounds, Soft Extremities: Yes: WNL Edema: Yes Labs: CBC, BMP 07/08/17 05:25 07/08/17 05:25 INR, PTT INR 0.91 (0.82-1.09) 07/02/17 14:00 Assessment/Plan ACUTE ON CHRONIC HYPOXEMIC RESPIRATORY FAILURE O2 DEPENDANT COPD CHRONIC ILD LIKELY OCCUPATIONAL RELATED(HAS LABORATORY VETERINARIAN FROM [facility]) HAD WORK UP C/W VATS/WEDGE PULMONARY HTN UNTREATED OSAS HTN DM ACUTE SINUSITIS H/O RENAL CELL CA 2000 S/P NEPHRECTOMY SYMBICORT 2 PUFFS BID PREDNISONE CONTINUE O2 SINGULAIR DUONEB PRN FOLLOW UP WITH LABORATORY VETERINARIAN FROM [facility] REGARDING UNTREATED OSAS ANTIBIOTICS ? EVAL FOR LUNG TRANSPLANT PT WILL HAVE TO LOSE AT LEAST 8O-100LBS PULMONARY REHAB DR RUBY Problem List - Problems (1) COPD (chronic obstructive pulmonary disease) Code(s): J44.9 - CHRONIC OBSTRUCTIVE PULMONARY DISEASE, UNSPECIFIED (2) Sleep apnea in adult Code(s): G47.30 - SLEEP APNEA, UNSPECIFIED (3) Otitis externa hemorrhagica Code(s): H60.329 - HEMORRHAGIC OTITIS EXTERNA, UNSPECIFIED EAR (4) Diabetes Code(s): E11.9 - TYPE 2 DIABETES MELLITUS WITHOUT COMPLICATIONS (5) HTN (hypertension) Code(s): I10 - ESSENTIAL (PRIMARY) HYPERTENSION (6) Renal malignant neoplasm Code(s): C64.9 - MALIGNANT NEOPLASM OF UNSP KIDNEY, EXCEPT RENAL PELVIS
--- NOTE | 2017-07-08 11:54 | PN ---
Progress Note (short form) - Note Progress Note: s: no sob cp palps dizzy o: Vital Signs Period Temp Pulse Resp BP Sys/Hall Pulse Ox Last 24 Hr 97.3 F-99.0 F 54-71 20-22 118-150/61-78 95-99 nad, calm jvd tds, neck supple cta bl nl effort RRR nl s1, s2 no mrg abd + bs soft nt nd, no hsm no le e/c/c aaox3 no jaundice, diaphoresis. CBC, BMP 07/08/17 05:25 07/08/17 05:25 Current Medications Generic Name Dose Route Start Last Admin Trade Name Freq PRN Reason Stop Dose Admin Albuterol/Ipratropium 1 amp 07/04/17 07:19 07/08/17 06:35 Duoneb - NEB 1 amp Q6H PRN Administration SHORTNESS OF BREATH Aspirin 81 mg 07/05/17 10:00 07/08/17 09:29 Ecotrin - PO 81 mg DAILY MELI Administration Atorvastatin Calcium 20 mg 07/04/17 22:00 07/07/17 21:38 Lipitor - PO 20 mg HS MELI Administration Budesonide/Formoterol Fumarate 2 puff 07/04/17 10:00 07/08/17 09:29 Symbicort 160/4.5mcg - IH 2 puff BID MELI Administration Clonidine 0.1 mg 07/04/17 10:00 07/08/17 09:29 Catapres - PO 0.1 mg BID MELI Administration Folic Acid 1 mg 07/04/17 10:00 07/08/17 09:29 Folic Acid - PO 1 mg DAILY MELI Administration Furosemide 80 mg 07/07/17 14:00 07/08/17 05:53 Lasix - PO 80 mg BID@0600,1400 MELI Administration Heparin Sodium (Porcine) 5,000 unit 07/04/17 22:00 07/08/17 05:53 Heparin - SQ 5,000 unit TID MELI Administration CEFTRIAXONE 1 G/50 ML PREMIX 50 mls @ 100 mls/hr 07/04/17 10:00 07/08/17 09: 29 Ceftriaxone 1 Gm-D5w Bag IVPB 100 mls/hr DAILY MELI Administration Insulin Aspart 1 vial 07/04/17 11:00 07/08/17 06:14 Novolog Vial Sliding Scale - SQ Not Given ACHS MELI Protocol Meclizine HCl 12.5 mg 07/04/17 12:00 07/08/17 05:53 Antivert - PO 12.5 mg Q6HPO MELI Administration Metoprolol Succinate 50 mg 07/04/17 10:00 07/08/17 09:29 Toprol Xl - PO 50 mg DAILY MELI Administration Montelukast Sodium 10 mg 07/04/17 22:00 07/07/17 21:38 Singulair - PO 10 mg HS MELI Administration Prednisone 30 mg 07/07/17 11:30 07/08/17 09:29 Deltasone - PO 30 mg DAILY MELI Administration Sodium Chloride 2 spray 07/04/17 07:19 [place] Nasal [place] - NS BID PRN NASAL CONGESTION Spironolactone 25 mg 07/04/17 10:00 07/08/17 09:29 Aldactone - PO 25 mg DAILY MELI Administration ekg 06/2017: nsr, bordeline lateral STD. tele: SR head ct: sinusitis, no acute intracranial pathology cxr: elevated right hemidiaphragm. central congestive changes. TTE with definity - 05/05/16 CONCLUSIONS : overall borderline normal left ventricular systolic function (segmental); ejection fraction = 57 % normal left ventricular size mild concentric left ventricular hypertrophy abnormal left ventricular diastolic filling pattern moderate pulmonary hypertension mild decreased right ventricular function mild right atrial dilatation mild right ventricular dilatation mild aortic regurgitation mild to moderate sinus of valsalva dilatation echo 07/2017: nl lv/rv, mild lae, mild tr, mod phtn, mod ao root dil cath 08/2016: L/RHC mlad < 30%. oD1 30-50% baseline: lvedp/wedge 10, mpap 29, PVR 3.9 post exercise: lvedp/wedge 15, mpap 32, pvr 2.6 CT Chest - 05/02/17 Comparison is made with prior chest CTs dating back to April 2016: 1. Status post interval right lung wedge resections. Persistent findings of smoking-related lung disease with upper lobe predominant paraseptal emphysema and mild lower lobe fibrotic changes. No definite honeycombing. Ill-defined ground glass opacities may be related to desquamative interstitial pneumonia, as seen on pathology sample 2. A stable 9 mm right middle lobe nodule adjacent to the minor fissure may represent an intrapulmonary lymph node. 3. ~Newly left upper lobe tree-in-bud opacities suggestive of an infectious/inflammatory colitis. Numerous enlarged mediastinal lymph nodes demonstrating interval increase in size from 2016. These could be reactive in nature. A follow-up low-dose CT is advised in 3 months. 4. Dilatation of the main pulmonary artery up to 3.7 cm could reflect underlying pulmonary hypertension. 5. Bilateral gynecomastia could be medication-induced. - PET-CT scan performed that showed some FDG-avidity; mildly avid RUL nodule; hilar adenopathy and FDG-avidity --> DDX: Inflammatory vs infectious vs malignancy - s/p Bronchoscopy - 06/24/16 -- non-diagnostic PFTs - 05/14/16~-- No obstruction. ~Mild restriction. ~No AT. ~Reduced ERV c/w obesity. ~Mild Gas transfer defect A/P 71 yo with h/o HTN, HL, diastolic HF, ao root dilation, COPD/pulmonary fibrosis (6L home oxygen dependent), jamey, RUL pulmonary nodules, s/p VATS, RUL, RML and RLL wedge resections 10/2016, obesity, recent thrush, NIDDM, R renal CA s/p total nephrectomy without metastatic disease who p/w progressive sob/cough. SOB - Slow decompensation over the course of the year. likely multifactorial, acute on chronic sx's. On 6L of O2 at baseline. mgm't of copd/ild component per pulm. - also appears to have component of acute diastolic HF exacerbation, see below. acute diastolic HF exacerbation - appears volume overloaded. on lasix 40 mg bid at baseline. - 2: Weight increased on lasix 80 mg iv daily yesterday despite good uop. Will increase to bid. -07/06: chf improving, cont lasix 80 iv bid -07/07: will change to po lasix 80 bid now - strict i/o's, daily weights, bmps. htn - cont current meds. have not yet resumed home nifedipine. monitor for need to resume. non-obstructive cad - recent cath 08/2016. no cp. CE neg x 1. no further enzymes obtained. No acute ischemic changes on ekg. - con't asa, statin. COPD/ ILD (possible uip) with phtn - with superimposed, cardiac disease, jamey - On Breo, symbicort, albuterol inhalers Ao root dilation - con't bb hld - statin cardiac arvizu stable for dc
--- NOTE | 2017-07-08 12:13 | DS ---
Physical Exam: SUBJECTIVE: Patient seen and examined at the bedside. Feels better, denies shortness of breath, denies chest pain. Eager to go home, states he feels well enough. OBJECTIVE: pt has a 10L concentrator at home, awaiting insurance approval for delivery of Expert equipment Pt discharged home Vital Signs Period Temp Pulse Resp BP Sys/Hall Pulse Ox Last 24 Hr 97.3 F-99.0 F 54-71 20-22 118-150/61-78 95-99 PHYSICAL EXAM GENERAL: Awake, alert, and fully oriented, in no acute distress. HEAD: Normal with no signs of trauma. EYES: Pupils equal, round and reactive to light, extraocular movements intact, sclera anicteric, conjunctiva clear. No lid lag. EARS, NOSE, THROAT: Right ear tympanic bleeding behind tympanic membrane, sinusitis seen on head CT NECK: Normal range of motion, supple without lymphadenopathy, JVD, or masses. LUNGS:No wheezing, Left lung clear/diminished at base, right lung clear/ diminished HEART: Regular rate and rhythm ABDOMEN: obese abd., soft, non tender UPPER EXTREMITIES: 2+ pulses, warm, well-perfused. No cyanosis. No clubbing. No peripheral edema. LOWER EXTREMITIES: +1-+2 lower ext edema NEUROLOGICAL: Normal speech, ambulated with PT PSYCHIATRIC: Cooperative. Good eye contact. Appropriate mood and affect. SKIN: Warm, dry, normal turgor, no rashes or lesions noted, normal capillary refill. LABS Laboratory Results - last 24 hr 07/07/17 07/07/17 07/07/17 12:18 15:41 21:37 WBC RBC Hgb Hct MCV MCH MCHC RDW Plt Count MPV Neutrophils % Lymphocytes % Monocytes % Eosinophils % Basophils % Sodium Potassium Chloride Carbon Dioxide Anion Gap BUN Creatinine Creat Clearance w eGFR POC Glucometer 137 153 240 Random Glucose Calcium Total Bilirubin AST ALT Alkaline Phosphatase Total Protein Albumin 07/08/17 07/08/17 05:25 05:25 WBC 7.5 RBC 4.72 Hgb 14.3 Hct 44.8 MCV 95.0 MCH 30.4 MCHC 32.0 RDW 14.9 Plt Count 184 D MPV 7.8 Neutrophils % 74.2 Lymphocytes % 14.5 Monocytes % 8.7 Eosinophils % 2.1 Basophils % 0.5 Sodium 139 Potassium 3.5 Chloride 99 Carbon Dioxide 34 H Anion Gap 6 L BUN 21 H Creatinine 1.1 Creat Clearance w eGFR > 60 POC Glucometer Random Glucose 147 H Calcium 8.7 Total Bilirubin 0.6 D AST 21 ALT 51 Alkaline Phosphatase 195 H Total Protein 7.1 Albumin 3.3 L HOSPITAL COURSE: Date of Admission:07/02/17 Date of Discharge: 07/08/17 ASSESSMENT/PLAN: Patient is a 71 year old male with a significant past medical history of COPD ( home oxygen dependent), pulmonary fibrosis, diabetes, hypertension, CHF, R renal CA s/p nephrectomy without metastatic disease. He presents to the ED with c/o of feeling lightheaded and dizzy with right ear bleeding. Patient reported that his ear was bothering him earlier so he attempted to place a tweezer inside because he felt that he had an object inside his ear. A CT scan of the head show no evidence of ICH but extensive sinusitis. Patient is home oxygen dependent and has a history of lung nodules (which patient states it was non cancerous ), interstitial lung disease and COPD. He reports using home oxygen between 4-6 liters at home but has been using 8 liters as patient developed increased demand for home oxygen. He reports that his oxygen sats at home have been in the mid to low 80s on 6-8 liters. Pulmonary: Hypoxia, acute on chronic respiratory failure secondary to COPD/interstitial lung disease, improved Home oxygen dependent with a 10 liters concentrator at home. High flow oxygen being ordered for home use which has been set up Duonebs scheduled, on Symbicort Ventolin for home use, Symbicort BID Oxygen sats stable On Lasix 80mg BID Follow up Take Away Man from [facility] for sleep apnea studies and post hospital follow as outpatient (pt to see next week) Discussed steriod taper with Take Away Man, recommends patient stays on Prednisone 30mg daily until seen by his health and safety advisor next week Cardiology Hypertension, controlled On metoprolol 50mg daily On Clonidine hcl 0.1mg bid CHF, acute on chronic On Lasix 80mg BID Endocrine: Continue home medications ENT: Ear/Nose/Throat Outpatient audiogram Sinusitits Augmentin for 5 more days as an outpatient Nasal spray BID Renal R renal CA s/p nephrectomy Creat. stable disposition: Discharge home with close pulmonary and cardiology followup. full code Minutes to complete discharge: 60 Discharge Summary Reason For Visit: HYPOXIA Current Active Problems COPD (chronic obstructive pulmonary disease) (Acute) Diabetes (Acute) HTN (hypertension) (Acute) Hypoxia (Acute) Otitis externa hemorrhagica (Acute) Renal malignant neoplasm (Acute) Sinusitis (Acute) Sleep apnea in adult (Acute) Condition: Stable - Instructions Diet, Activity, Other Instructions: Mr. Eubanks: Please follow up with your health and safety advisor next week. In the meantime, please continue with the Prednisone 30mg per day. A high flow oxygen concentrator has been ordered for you for home use. Please follow up with your venetian blind installer within 1 week of discharge. The ENT physician examined you while you were in the hospital and recommends a follow up hearing exam. Please make an appointment at your convenience. Your medications have been called into your home pharmacy. New Medications: Prednisone 30mg daily, continue this until you see your health and safety advisor Augmentin 875-125mg twice per day for 5 more days (for sinus infection) Metoprol 50mg daily - this dose was decreased from your home dose Nasal Export - use twice per day for nasal congestion Sprinoolactone 25mg daily Lasix 80mg twice per day at 8am and 8pm (changed from your home dose) Symbicort 160/4.5mcgs 2 puffs twice per day Rescue inhaler (ventolin) as needed, every 4-6 hours for shortness of breath Singulair 10mg at bedtime continue the home medications as noted under the discharge instructions. Please call with any questions that you may have. [facility] [phone] Referrals: Bayron Ratliff MD [Staff Physician] - Reza Holt MD [Staff Physician] - 2 Weeks (for audiogram) Ace Harding MD [Staff Physician] - 1 Week Disposition: HOME - Home Medications Comprehensive Discharge Medication List: Ambulatory Orders Atorvastatin Calcium [Lipitor] 10 mg PO DAILY 07/02/17 Clonidine HCl 0.1 mg PO BID 07/02/17 Folic Acid 1 mg PO DAILY 07/02/17 Metoprolol Succinate [Toprol Xl] 50 mg PO DAILY 07/02/17 Montelukast Sodium [Singulair] 10 mg PO DAILY 07/02/17 Potassium Chloride [K-[place] -] 10 meq PO BID 07/02/17 Glimepiride [Amaryl] 2 mg PO ACBK 07/03/17 Albuterol Sulfate Inhaler - [Ventolin Hfa Inhaler -] 1 puff IH Q6H #1 inhaler Amoxicillin/Potassium Clav [Augmentin 875-125 Tablet] 1 each PO BID #10 tablet 07/08/17 Aspirin Coated [Ecotrin -] 81 mg PO DAILY tablet.ec 07/08/17 Budesonide/Formeterol Fumarate [SYMBICORT 160/4.5mcg -] 1 inh PO BID #1 inhaler 07/08/17 Furosemide [Lasix -] 80 mg PO BID@0600,1400 #120 tablet 07/08/17 Meclizine HCl [Antivert -] 12.5 mg PO Q6HPO #60 tablet 07/08/17 Metoprolol Succinate [Toprol XL -] 50 mg PO DAILY #0 tab.sr.24h 07/08/17 Prednisone [Deltasone -] 30 mg PO DAILY #40 tablet 07/08/17 Sodium Chloride Nasal Export [[place] Nasal [place] -] 2 spray NS BID PRN 14 Days #1 bottle 07/08/17 Spironolactone [Aldactone -] 25 mg PO DAILY #30 tablet 07/08/17 This patient is new to me today: No Emergency Visit: Yes ED Registration Date: 07/02/17 Care time: The patient presented to the Emergency Department on the above date and was hospitalized for further evaluation of their emergent condition. Critical Care patient: No - Discharge Referral Referred to [facility] Med [facility].C[facility] No
[2017-07-08 13:39] VITALS: PULSE 66
== END 2017-07-08 15:47 | disposition home or self-care (01) | DRG 189 ==
LOC: JER 11:52 → JERBED 17:29 → J8W 19:35 → J4W 07-03 15:52
PROVIDERS: ADMIT Internal Medicine; ATTEND Nurse Practitioner Family
DX: J96.21 Acute and chronic respiratory failure with hypoxia (principal); J84.9 Interstitial pulmonary disease, unspecified; E87.4 Mixed disorder of acid-base balance; Z68.41 Body mass index [BMI] 40.0-44.9, adult; J44.9 Chronic obstructive pulmonary disease, unspecified; J84.10 Pulmonary fibrosis, unspecified; E11.9 Type 2 diabetes mellitus without complications; I11.0 Hypertensive heart disease with heart failure; Z85.528 Personal history of other malignant neoplasm of kidney; Z90.5 Acquired absence of kidney; F17.210 Nicotine dependence, cigarettes, uncomplicated; M88.88 Osteitis deformans of other bones; R91.8 Other nonspecific abnormal finding of lung field; Z99.81 Dependence on supplemental oxygen; G47.33 Obstructive sleep apnea (adult) (pediatric); H61.21 Impacted cerumen, right ear; E66.9 Obesity, unspecified; I25.10 Atherosclerotic heart disease of native coronary artery without angina pectoris; I27.20 Pulmonary hypertension, unspecified; H60 Otitis externa; J01.00 Acute maxillary sinusitis, unspecified
CPT/HCPCS: 36415; 36600; 70450-TC; 71010-TC; 71045-TC; 80053; 80061; 81003; 82375; 82550; 82803; 83036; 83050; 83605; 83721; 83735; 83880; 84484; 85025; 85027; 85610; 85730; 87040; 87086; 93005; 93010; 93306-TC; 94010; 94640; 97116-GP; 97162-GP; 99283-25; J1644